=== PATIENT | female | born 1940 | race Caucasian/White ===

== ENCOUNTER 2018-05-30 07:01 | Day surgery (SDC) | payer MEDICARE, BC ==
[2018-05-30] MEDS ORDERED: Sodium Chloride 0.9% 1,000 ML IV SCH (07:30)
[2018-05-30] MEDS ORDERED: Propofol 200 MG/20 ML SDV ONE (08:18)
[2018-05-30] MEDS ORDERED: fentaNYL 100 MCG/2 ML SDV ONE (08:18)
--- NOTE | 2018-05-30 09:23 | PROC ---
DATE OF PROCEDURE: 05/30/2018 SURGEON: Ernie Aleman MD INDICATIONS: Keya is a 77-year-old female, who comes in because of recurrent abdominal pain. The pain is worse every time she eats. The risks and benefits were explained to her for esophageal gastroduodenoscopy. The Olympus 180 scope was used. PROCEDURE IN DETAIL: Anesthesia was given by nurse grinding supervisor during procedure, used 100 mcg of fentanyl and 90 mg of propofol. The tube was placed into the pharynx and the esophagus without difficulty and passed under direct vision into the body of the stomach. The pylorus was identified and advanced into the first and second part of the duodenum. Upon retraction of the tube, noted no lesions, ulceration. No abnormality. Mild erythema noted throughout the small intestine. The tube was brought back into the stomach, which revealed no abnormality. The greater and lesser curvatures were unremarkable. There is a hiatal hernia noted with mild erythema. The air was then withdrawn from the stomach. The remainder of the esophagus was unremarkable. The pharyngeal area was unremarkable. The tube was removed. The patient tolerated the procedure well. PREOPERATIVE DIAGNOSIS: Abdominal pain. POSTOPERATIVE DIAGNOSIS: I feel that this study does not identify the reason for the abdominal pain. There was a hiatal hernia, which could cause some of the problem, but not the severity that she describes. Ernie Aleman MD /[id number]
[2018-05-30 09:48] VITALS: BP 135/75
== END 2018-05-30 10:13 | disposition home or self-care (01) ==
LOC: JP.SDS 07:01
PROVIDERS: ATTEND Internal Medicine
DX: R10.9 Unspecified abdominal pain (principal); K44.9 Diaphragmatic hernia without obstruction or gangrene; K31.89 Other diseases of stomach and duodenum; K21.9 Gastro-esophageal reflux disease without esophagitis; I10 Essential (primary) hypertension; J44.9 Chronic obstructive pulmonary disease, unspecified; G47.33 Obstructive sleep apnea (adult) (pediatric)
CPT/HCPCS: 43235; J2704; J3010; J7030

== ENCOUNTER 2018-08-22 16:44 | Emergency (ER) | payer MEDICARE, BC ==
[2018-08-22] MEDS ORDERED: HYDROmorphone 0.5 MG/0.5 ML Syringe IVPUSH ONE ×2 (18:26→20:38)
[2018-08-22] MEDS ORDERED: Ondansetron 4 MG/2 ML SDV IVPUSH ONE ×2 (18:26→23:01)
[2018-08-22] MEDS ORDERED: Sodium Chloride 0.9% 1,000 ML IV SCH ×3 (18:30→23:00)
--- NOTE | 2018-08-22 18:30 | EDM.PDOC ---
ED HPI GENERAL MEDICAL PROBLEM - General Chief Complaint: Abdominal Pain Stated Complaint: ABDOMINAL PAIN Time Seen by Provider: 08/22/18 18:27 Source of Information: Reports: Patient History Limitations: Reports: No Limitations - History of Present Illness INITIAL COMMENTS - FREE TEXT/NARRATIVE: pt arrived with pain in the lower abdom,an. She has been vomiting all day. She has had diarrhea and she feels some of the stool looked red. pt has also felt constipated. She seemed very distended today. Onset: Gradual, Other ( The pain was clearly worse today. ) Duration: Hour(s): Location: Reports: Abdomen Associated Symptoms: Reports: Fever/Chills, Nausea/Vomiting Abdomen Pain Score (Numeric/FACES): 5 - Related Data Allergies Allergy/AdvReac Type Severity Reaction Status Date / Time No Known Allergies Allergy Verified 08/22/18 18:04 Home Meds: Home Meds Dexlansoprazole [Dexilant] 60 mg PO BEDTIME 10/08/14 [History] Gabapentin 600 mg PO BID 10/08/14 [History] Aclidinium [place] [Tudorza Pressair] 400 mcg PO DAILY 02/09/15 [History] Budesonide/Formoterol [Symbicort 160-4.5 Mcg Inhaler] 1 - 2 puff IH BID [History] Lutein 20 mg PO DAILY 02/09/15 [History] Solifenacin [Vesicare] 10 mg PO DAILY 02/09/15 [History] Acetaminophen/Caffeine [Excedrin Tension Headache] 1 tab PO DAILY PRN 05/30/18 [ History] Ca Carbonate/Vitamin D3/Vit K [Calcium + D Soft Chewable Tab] 2,000 mg PO BID [History] Ibuprofen/Pseudoephedrine HCl [Advil Cold & Sinus Caplet] 2 tab PO DAILY [History] Lactobacillus Acidophilus [Acidophilus] 0.5 mg PO DAILY 05/30/18 [History] MV-Mn/VitC/Asbna/Glu/Tia/HC124 [Airborne Gummies] 2 tab PO DAILY 05/30/18 [ History] Past Medical History HEENT History: Reports: Cataract, Impaired Vision, Sinusitis Other HEENT History: wears glasses Respiratory History: Reports: Asthma, Bronchitis, Recurrent Gastrointestinal History: Reports: Chronic Constipation, GERD, Hemorrhoids Genitourinary History: Reports: None [employer] 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: , Prolapsed Uterus Musculoskeletal History: Reports: Back Pain, Chronic, Osteoarthritis, Osteoporosis Neurological History: Reports: Migraines - Infectious Disease History Infectious Disease History: Reports: ERL-Iqwcwpeqwz-Xnwcexygh Enterobacteriaceae , Measles, Mumps, Rubella - Past Surgical History Head Surgeries/Procedures: Reports: None HEENT Surgical History: Reports: Cataract Surgery Respiratory Surgical History: Reports: None GI Surgical History: Reports: Appendectomy, Colonoscopy, Other (See Below) Other GI Surgeries/Procedures: hemorrhoidectomy Female Surgical History: Reports: Hysterectomy, Oophorectomy Neurological Surgical History: Reports: None Musculoskeletal Surgical History: Reports: Other (See Below) Other Musculoskeletal Surgeries/Procedures:: Clavicle fracture in 2014 requiring plating and screws Dermatological Surgical History: Reports: None Social & Family History - Tobacco Use Smoking Status *Q: Never Smoker Second Hand Smoke Exposure: No - Caffeine Use Caffeine Use: Reports: Coffee, Soda - Recreational Drug Use Recreational Drug Use: No ED ROS GENERAL - Review of Systems Review Of Systems: See Below Constitutional: Reports: Fever, Chills HEENT: Reports: No Symptoms Respiratory: Reports: No Symptoms Cardiovascular: Reports: Dyspnea on Exertion Endocrine: Reports: No Symptoms GI/Abdominal: Reports: Abdominal Pain, Decreased Appetite, Nausea, Vomiting Musculoskeletal: Reports: No Symptoms Skin: Reports: No Symptoms ED EXAM, GI/ABD - Physical Exam Exam: See Below Text/Narrative:: pt arrived felling distended in his abdoman and having pain in her lower abdoman. She does have a low grade temp of 100. She had some loose stools today but she in general has not been having regular bms. She has been vomiting all day today. She is feeling very weak. She feels persistently nauiseated. Exam Limited By: No Limitations General Appearance: Alert, Moderate Distress Ears: Normal TMs Nose: Normal Inspection Throat/Mouth: Normal Inspection Head: Atraumatic Neck: Normal Inspection Respiratory/Chest: No Respiratory Distress Cardiovascular: Regular Rate, Rhythm GI/Abdominal Exam: Other ( abdoman appears mildly distended. She has diffuse lower abdomanal tenderness. ) (Female) Exam: Deferred Rectal (Female) Exam: Other (pt had stool present in the rectum. her stool was occult neg. ) Back Exam: Normal Inspection Extremities: Normal Inspection Neurological: Alert, Oriented, Normal Cognition Psychiatric: Anxious Course - Vital Signs Last Recorded V/S: Last Vital Signs Temp 37.1 C 08/24/18 07:00 Pulse 77 08/24/18 07:00 Resp 18 08/24/18 07:00 BP 120/72 08/24/18 07:00 Pulse Ox 94 L 08/24/18 07:00 - Orders/Labs/Meds Orders: Medication Orders Acetaminophen (Tylenol) 650 mg PO Q4H PRN PRN Reason: Pain (Mild 1-3)/fever Acetaminophen/Caffeine (Excedrin Tension Headache) 1 tab PO DAILY PRN PRN Reason: migraine Last Admin: 08/23/18 14:09 Dose: 1 tab Albuterol (Proventil Neb Soln) 2.5 mg NEB Q4H PRN PRN Reason: Shortness Of Breath/wheezing Bisacodyl (Dulcolax) 5 mg PO DAILY PRN PRN Reason: Constipation Docusate Sodium (Colace) 100 mg PO BID PRN PRN Reason: Constipation Enoxaparin Sodium (Lovenox) 40 mg SUBCUT DAILY [facility] Last Admin: 08/23/18 11:37 Dose: 40 mg Ceftriaxone Sodium 1 gm/ (Sodium Chloride) 50 mls @ 100 mls/hr IV Q24H [facility] Last Admin: 08/23/18 13:59 Dose: 100 mls/hr Lactobacillus Rhamnosus (Culturelle) 1 cap PO DAILY [facility] Melatonin (Melatonin) 6 mg PO BEDTIME PRN PRN Reason: Insomnia Last Admin: 08/23/18 21:27 Dose: 6 mg Morphine Sulfate (Morphine) 2 mg IVPUSH Q2H PRN PRN Reason: Pain (severe 7-10) Last Admin: 08/23/18 23:51 Dose: 2 mg Aclidinium [place] ( Tudorza Pressair) 400 Mcg Inhaler Own Med 0 each INH DAILY [facility] Last Admin: 08/23/18 21:30 Dose: Lutein 20 Mg Tab (Own Med) 0 mg PO DAILY [facility] Last Admin: 08/23/18 21:25 Dose: Ondansetron HCl (Zofran Odt) 4 mg PO Q6H PRN PRN Reason: Nausea able to take PO Ondansetron HCl (Zofran) 4 mg IV Q4H PRN PRN Reason: Nausea/Vomiting Last Admin: 08/23/18 09:37 Dose: 4 mg Admin: 08/23/18 05:58 Dose: 4 mg Admin: 08/23/18 01:50 Dose: 4 mg Pantoprazole Sodium (Protonix) 40 mg PO BEDTIME [facility] Last Admin: 08/23/18 20:51 Dose: 40 mg Patient's Own MedicationVesicare 10 Mg 1 each PO DAILY [facility] Last Admin: 08/23/18 21:27 Dose: 1 each Patient's Own Medication Gabapentin 600 Mg 1 each PO BID [facility] Last Admin: 08/23/18 21:26 Dose: Not Given Patient's Own Medication Symbicort 160/4.5 Mcg 0 each INH BID [facility] Last Admin: 08/23/18 21:30 Dose: 1 each Polyethylene Glycol (Miralax) 17 gm PO BID [facility] Last Admin: 08/23/18 21:30 Dose: Not Given Admin: 08/23/18 13:59 Dose: 17 gm Senna/Docusate Sodium (Senna Plus) 1 tab PO BID [facility] Last Admin: 08/23/18 20:51 Dose: 1 tab Admin: 08/23/18 13:59 Dose: 1 tab Sodium Biphosphate/Sodium Phosphate (Fleet Enema) 133 ml RECTAL ONETIME PRN PRN Reason: Constipation Labs: Laboratory Tests 08/22/18 08/22/18 08/22/18 Range/Units 18:32 18:38 18:38 WBC 10.7 (4.5-11.0) K/uL RBC 5.14 (3.30-5.50) M/uL Hgb 15.2 H (12.0-15.0) g/dL Hct 45.9 (36.0-48.0) % MCV 89 (80-98) fL MCH 30 (27-31) pg MCHC 33 (32-36) % Plt Count 302 (150-400) K/uL Neut % (Auto) 92 H (36-66) % Lymph % (Auto) 5 L (24-44) % [place] % (Auto) 3 (2-6) % Eos % (Auto) 0 L (2-4) % Baso % (Auto) 0 (0-1) % Sodium (140-148) mmol/L Potassium (3.6-5.2) mmol/L Chloride (100-108) mmol/L Carbon Dioxide (21-32) mmol/L Anion Gap (5.0-14.0) mmol/L BUN (7-18) mg/dL Creatinine (0.6-1.0) mg/dL Est Cr Clr Drug Dosing mL/min Estimated GFR (MDRD) (>60) Glucose (74-106) mg/dL Lactic Acid (0.4-2.0) mmol/L Calcium (8.5-10.1) mg/dL Total Bilirubin (0.2-1.0) mg/dL AST (15-37) U/L ALT (12-78) U/L Alkaline Phosphatase (46-116) U/L C-Reactive Protein 1.18 H (0.0-0.3) mg/dL Total Protein (6.4-8.2) g/dL Albumin (3.4-5.0) g/dL Globulin (2.3-3.5) g/dL Albumin/Globulin Ratio (1.2-2.2) Urine Color Yellow Urine Appearance Cloudy Urine pH 6.0 (4.5-8.0) Ur Specific [place] 1.015 (1.008-1.030) Urine Protein Negative (NEGATIVE) mg/dL Urine Glucose (UA) Normal (NEGATIVE) mg/dL Urine Ketones 50 H (NEGATIVE) mg/dL Urine Occult Blood Trace (NEGATIVE) Urine Nitrite Positive H (NEGATIVE) Urine Bilirubin Negative (NEGATIVE) Urine Urobilinogen Normal (NORMAL) mg/dL Ur Leukocyte Esterase Small (NEGATIVE) Urine RBC 0-5 (0-5) Urine WBC 0-5 (0-5) Ur Epithelial Cells Few Amorphous Sediment Not seen Urine Bacteria Many Urine Mucus Not seen 08/22/18 08/22/18 Range/Units 18:38 23:00 WBC (4.5-11.0) K/uL RBC (3.30-5.50) M/uL Hgb (12.0-15.0) g/dL Hct (36.0-48.0) % MCV (80-98) fL MCH (27-31) pg MCHC (32-36) % Plt Count (150-400) K/uL Neut % (Auto) (36-66) % Lymph % (Auto) (24-44) % [place] % (Auto) (2-6) % Eos % (Auto) (2-4) % Baso % (Auto) (0-1) % Sodium 141 (140-148) mmol/L Potassium 3.5 L (3.6-5.2) mmol/L Chloride 105 (100-108) mmol/L Carbon Dioxide 28 (21-32) mmol/L Anion Gap 11.5 (5.0-14.0) mmol/L BUN 15 (7-18) mg/dL Creatinine 0.8 (0.6-1.0) mg/dL Est Cr Clr Drug Dosing 28.72 mL/min Estimated GFR (MDRD) > 60 (>60) Glucose 111 H (74-106) mg/dL Lactic Acid 1.7 (0.4-2.0) mmol/L Calcium 9.0 (8.5-10.1) mg/dL Total Bilirubin 0.7 (0.2-1.0) mg/dL AST 13 L (15-37) U/L ALT 22 (12-78) U/L Alkaline Phosphatase 81 (46-116) U/L C-Reactive Protein (0.0-0.3) mg/dL Total Protein 7.0 (6.4-8.2) g/dL Albumin 3.7 (3.4-5.0) g/dL Globulin 3.3 (2.3-3.5) g/dL Albumin/Globulin Ratio 1.1 L (1.2-2.2) Urine Color Urine Appearance Urine pH (4.5-8.0) Ur Specific [place] (1.008-1.030) Urine Protein (NEGATIVE) mg/dL Urine Glucose (UA) (NEGATIVE) mg/dL Urine Ketones (NEGATIVE) mg/dL Urine Occult Blood (NEGATIVE) Urine Nitrite (NEGATIVE) Urine Bilirubin (NEGATIVE) Urine Urobilinogen (NORMAL) mg/dL Ur Leukocyte Esterase (NEGATIVE) Urine RBC (0-5) Urine WBC (0-5) Ur Epithelial Cells Amorphous Sediment Urine Bacteria Urine Mucus Meds: Medications Generic Name Dose Route Start Last Admin Trade Name Freq PRN Reason Stop Dose Admin Acetaminophen 650 mg 08/23/18 01:16 Tylenol PO Q4H PRN Pain (Mild 1-3)/fever Acetaminophen/Caffeine 1 tab 08/23/18 01:16 08/23/18 14:09 Excedrin Tension Headache PO 1 tab DAILY PRN Administration migraine Albuterol 2.5 mg 08/23/18 01:16 Proventil Neb Soln NEB Q4H PRN Shortness Of Breath/wheezing Bisacodyl 5 mg 08/23/18 01:16 Dulcolax PO DAILY PRN Constipation Docusate Sodium 100 mg 08/23/18 01:16 Colace PO BID PRN Constipation Enoxaparin Sodium 40 mg 08/23/18 09:30 08/23/18 11:37 Lovenox SUBCUT 40 mg DAILY [facility] Administration Ceftriaxone Sodium 1 gm/ 50 mls @ 100 mls/hr 08/23/18 13:00 08/23/18 13:59 Sodium Chloride IV 100 mls/hr Q24H [facility] Administration Lactobacillus Rhamnosus 1 cap 08/24/18 09:00 Culturelle PO DAILY [facility] Melatonin 6 mg 08/23/18 01:16 08/23/18 21:27 Melatonin PO 6 mg BEDTIME PRN Administration Insomnia Morphine Sulfate 2 mg 08/23/18 01:16 08/23/18 23:51 Morphine IVPUSH 2 mg Q2H PRN Administration Pain (severe 7-10) Aclidinium [place] ( 0 each 08/23/18 19:45 08/23/18 21:30 Tudorza Pressair) INH Not Given 400 Mcg Inhaler DAILY [facility] Own Med Lutein 20 Mg Tab 0 mg 08/23/18 17:45 08/23/18 21:25 Own Med PO Not Given DAILY [facility] Ondansetron HCl 4 mg 08/23/18 01:16 Zofran Odt PO Q6H PRN Nausea able to take PO Ondansetron HCl 4 mg 08/23/18 01:16 08/23/18 09:37 Zofran IV 4 mg Q4H PRN Administration Nausea/Vomiting Pantoprazole Sodium 40 mg 08/23/18 21:00 08/23/18 20:51 Protonix PO 40 mg BEDTIME [facility] Administration Patient's Own 1 each 08/24/18 09:00 08/23/18 21:27 MedicationVesicare PO 1 each 10 Mg DAILY [facility] Administration Patient's Own 1 each 08/23/18 21:15 08/23/18 21:26 Medication PO Not Given Gabapentin 600 Mg BID [facility] Patient's Own 0 each 08/23/18 21:15 08/23/18 21:30 Medication INH 1 each Symbicort 160/4.5 BID [facility] Administration Mcg Polyethylene Glycol 17 gm 08/23/18 13:00 08/23/18 21:30 Miralax PO Not Given BID [facility] Senna/Docusate Sodium 1 tab 08/23/18 13:00 08/23/18 20:51 Senna Plus PO 1 tab BID [facility] Administration Sodium Biphosphate/Sodium Phosphate 133 ml 08/23/18 12:58 Fleet Enema RECTAL ONETIME PRN Constipation Discontinued Medications Generic Name Dose Route Start Last Admin Trade Name Freq PRN Reason Stop Dose Admin Bisacodyl 10 mg 08/23/18 13:15 08/23/18 14:48 Dulcolax RECTAL 08/23/18 13:16 Not Given ONETIME ONE Diphenhydramine HCl 25 mg 08/23/18 01:16 08/23/18 02:23 Benadryl PO 08/23/18 01:17 Not Given ONETIME ONE Enoxaparin Sodium 30 mg 08/23/18 09:00 Lovenox SUBCUT DAILY [facility] Gabapentin 600 mg 08/23/18 09:00 08/23/18 20:51 Neurontin PO 600 mg BID [facility] Administration Hydromorphone HCl 0.5 mg 08/22/18 18:26 08/22/18 19:01 Dilaudid IVPUSH 08/22/18 18:27 0.5 mg ONETIME ONE Administration Hydromorphone HCl 0.5 mg 08/22/18 20:38 08/22/18 20:45 Dilaudid IVPUSH 08/22/18 20:39 0.5 mg ONETIME ONE Administration Sodium Chloride 1,000 mls @ 999 mls/hr 08/22/18 18:30 08/22/18 18:59 Normal Saline IV 999 mls/hr ASDIRECTED [facility] Administration Sodium Chloride 1,000 mls @ 999 mls/hr 08/22/18 19:00 08/22/18 20:34 Normal Saline IV 999 mls/hr ASDIRECTED [facility] Administration Sodium Chloride 80 mls @ 3 mls/sec 08/22/18 20:15 08/22/18 20:22 Normal Saline IV 3 mls/sec ASDIRECTED [facility] Administration Levofloxacin/Dextrose 500 mg/ 100 mls @ 100 mls/hr 08/22/18 21:30 08/22/18 21 :47 Premix IV 08/22/18 22:29 100 mls/hr ONETIME ONE Administration Sodium Chloride 1,000 mls @ 999 mls/hr 08/22/18 23:00 08/22/18 23:24 Normal Saline IV 999 mls/hr ASDIRECTED [facility] Administration Levofloxacin/Dextrose 500 mg/ 100 mls @ 100 mls/hr 08/23/18 21:00 Premix IV Q24H [facility] Sodium Chloride 1,000 mls @ 125 mls/hr 08/23/18 01:16 08/23/18 09:33 Normal Saline IV 125 mls/hr ASDIRECTED [facility] Administration Iopamidol 100 ml 08/22/18 20:15 08/22/18 20:22 Isovue-300 (61%) IV 100 ml . DIRECTED [facility] Administration Lorazepam 1 mg 08/23/18 01:16 08/23/18 03:19 Ativan IV 1 mg Q6H PRN Administration Nausea/Vomiting Magnesium Citrate 296 ml 08/22/18 21:31 08/22/18 21:50 Citrate Of Magnesia PO 08/22/18 21:32 296 ml ONETIME ONE Administration Budesonide/ 0 each 08/23/18 21:00 08/23/18 21:35 Formoterol ( INH Not Given Symbicort) 160/4.5 BID [facility] Mcg Inhaler Own Med Solifenacin ( 0 each 08/23/18 19:45 08/23/18 21:34 Vesicare) 10 Mg PO Not Given Tablet Own Med DAILY [facility] Ondansetron HCl 4 mg 08/22/18 18:26 08/22/18 19:01 Zofran IVPUSH 08/22/18 18:27 4 mg ONETIME ONE Administration Ondansetron HCl 4 mg 08/22/18 23:01 08/22/18 23:25 Zofran IVPUSH 08/22/18 23:02 4 mg ONETIME ONE Administration Oxycodone HCl 5 mg 08/23/18 01:16 08/23/18 01:44 Oxycodone PO 5 mg Q4H PRN Administration Pain (moderate 4-6) Sodium Chloride 10 ml 08/22/18 20:01 08/22/18 20:22 Saline Flush FLUSH 10 ml ASDIRECTED PRN Administration Keep Vein Open - Re-Assessments/Exams Free Text/Narrative Re-Assessment/Exam: 08/22/18 23:36 pt had a neg stool for blood. She had a cat scan of the abdoman which showed a hiatal hernia and constipation. Her urine was clearing infected and may be the source of the temp. wbc was normal and her lactic acid was normal. pt was given mag citrate and a tap water enema. She did have good results with the tap water enema. 08/22/18 23:37 08/24/18 08:10 Departure - Departure Time of Disposition: 21:30 Disposition: Admitted As Inpatient 68 Condition: Fair Clinical Impression: Dehydration UTI (urinary tract infection) Qualifiers: Urinary tract infection type: acute cystitis Hematuria presence: with hematuria Qualified Code(s): N30.01 - Acute cystitis with hematuria Constipation Qualifiers: Constipation type: chronic idiopathic constipation Qualified Code(s): K59.04 - Chronic idiopathic constipation - Discharge Information
[2018-08-22] MEDS ORDERED: Sodium Chloride 0.9% 10 ML Syringe FLUSH PRN (20:01)
[2018-08-22] MEDS ORDERED: Iopamidol 612 MG/ML 100 ML Bottle IV SCH (20:15)
[2018-08-22] MEDS ORDERED: Sodium Chloride 0.9% 80 ML IV SCH (20:15)
--- NOTE | 2018-08-22 21:05 | CRLCT ---
Clinical INDICATION: Lower abdominal pain. TECHNIQUE: Axial intravenously infused CT cuts were performed from above diaphragm to the below the ischial tuberosities. 100 mL of Isovue-300 was injected intravenously. COMPARISON: 06/04/2018. Findings : There is a very large amount of stool throughout some of majority of the colon. The sigmoid colon is relatively decompressed. No obstructing mass is seen. The small bowel appears normal. The appendix is not identified with certainty. There are no right lower quadrant inflammatory changes. There is no free intraperitoneal air. There are there is a moderate hiatal hernia. The liver, spleen, pancreas are, adrenals and kidneys appear normal. There are no enlarged retroperitoneal, mesenteric, iliac or inguinal lymph nodes. There has been a hysterectomy. IMPRESSION: 1. There is a very large amount stool throughout the majority of the colon. The sigmoid colon is relatively decompressed. There is no obstructing mass seen. 2. Moderate size hiatal hernia. Please note that all CT scans at this facility use dose modulation, iterative reconstruction, and/or weight-based dosing when appropriate to reduce radiation dose to as low as reasonably achievable. Dictated by Juan J Bhatia MD @ Aug 22 2018 8:55PM Signed by Dr. Juan J Bhatia @ Aug 22 2018 9:03PM
[2018-08-22] MEDS ORDERED: Levofloxacin/Dextrose 5%-Water 500 MG in Premix Bag 1 BAG IV ONE (21:30)
[2018-08-22] MEDS ORDERED: Magnesium Citrate Solution 296 ML Bottle PO ONE (21:31)
[2018-08-23] MEDS ORDERED: Ondansetron 4 MG Tab.DIS PO PRN (01:16)
[2018-08-23] MEDS ORDERED: Melatonin 3 MG Tab PO PRN (01:16)
[2018-08-23] MEDS ORDERED: LORazepam 2 MG/ML SDV IV PRN (01:16)
[2018-08-23] MEDS ORDERED: Docusate Sodium 100 MG Cap PO PRN (01:16)
[2018-08-23] MEDS ORDERED: Sodium Chloride 0.9% 1,000 ML IV SCH (01:16)
[2018-08-23] MEDS ORDERED: diphenhydrAMINE 25 MG Cap PO ONE (01:16)
[2018-08-23] MEDS ORDERED: Albuterol 0.083% 2.5 MG/3 ML Neb Soln NEB PRN (01:16)
[2018-08-23] MEDS ORDERED: Acetaminophen 325 MG Tab PO PRN (01:16)
[2018-08-23] MEDS ORDERED: oxyCODONE 5 MG Tab PO PRN (01:16)
[2018-08-23] MEDS ORDERED: Bisacodyl 5 MG Tab PO PRN (01:16)
[2018-08-23] MEDS ORDERED: Morphine 2 MG/ML Syringe IVPUSH PRN (01:16)
[2018-08-23] MEDS: Ondansetron 4 MG/2 ML SDV IV PRN ×3 (01:50→09:37)
--- NOTE | 2018-08-23 07:43 | PCM.HP ---
H&P History of Present Illness - General Date of Service: 08/22/18 Admit Problem/Dx: Admission Diagnosis/Problem Admission Diagnosis/Problem UTI, Urinary tract infectious disease Source of Information: Patient History Limitations: Reports: No Limitations - History of Present Illness Initial Comments - Free Text/Narative: This is a 77 year old female admitted Observation status for urinary tract infection. She came to ER with her daughter, reports abdominal pain. felt her urine felt "warm" when she urinated. Reports had not eaten or drank much in the past 2 days. In ER had a CT abdomen-pelvis which showed moderate constipation. and urine sample shows acute UTI. CBC WBC normal. She had a enema and medication for constipation, had a large stool but felt she was too weak to go home. Onset of Symptoms: Reports: Gradual Duration of Symptoms: Reports: Day(s):, Getting Worse Location: Reports: Generalized Severity: Severe Improves with: Reports: None Worsens with: Reports: Movement Associated Symptoms: Reports: Fever/Chills, Headaches, Loss of Appetite, Nausea/ Vomiting, Weakness Abdomen Pain Score (Numeric/FACES): 5 - Related Data Allergies/Adverse Reactions: Allergies Allergy/AdvReac Type Severity Reaction Status Date / Time No Known Allergies Allergy Verified 08/22/18 18:04 Home Medications: Home Meds Dexlansoprazole [Dexilant] 60 mg PO BEDTIME 10/08/14 [History] Gabapentin 600 mg PO BID 10/08/14 [History] Aclidinium [place] [Tudorza Pressair] 400 mcg PO DAILY 02/09/15 [History] Budesonide/Formoterol [Symbicort 160-4.5 Mcg Inhaler] 1 - 2 puff IH BID [History] Lutein 20 mg PO DAILY 02/09/15 [History] Solifenacin [Vesicare] 10 mg PO DAILY 02/09/15 [History] Acetaminophen/Caffeine [Excedrin Tension Headache] 1 tab PO DAILY PRN 05/30/18 [ History] Ca Carbonate/Vitamin D3/Vit K [Calcium + D Soft Chewable Tab] 2,000 mg PO BID [History] Ibuprofen/Pseudoephedrine HCl [Advil Cold & Sinus Caplet] 2 tab PO DAILY [History] Lactobacillus Acidophilus [Acidophilus] 0.5 mg PO DAILY 05/30/18 [History] MV-Mn/VitC/Asbna/Glu/Tia/HC124 [Airborne Gummies] 2 tab PO DAILY 05/30/18 [ History] Past Medical History HEENT History: Reports: Cataract, Impaired Vision, Sinusitis Other HEENT History: wears glasses Respiratory History: Reports: Asthma, Bronchitis, Recurrent Gastrointestinal History: Reports: Chronic Constipation, GERD, Hemorrhoids Genitourinary History: Reports: None 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: , Prolapsed Uterus Musculoskeletal History: Reports: Back Pain, Chronic, Osteoarthritis, Osteoporosis Neurological History: Reports: Migraines - Infectious Disease History Infectious Disease History: Reports: [id number] Enterobacteriaceae , Measles, Mumps, Rubella - Past Surgical History Head Surgeries/Procedures: Reports: None HEENT Surgical History: Reports: Cataract Surgery Respiratory Surgical History: Reports: None GI Surgical History: Reports: Appendectomy, Colonoscopy, Other (See Below) Other GI Surgeries/Procedures: hemorrhoidectomy Female Surgical History: Reports: Hysterectomy, Oophorectomy Neurological Surgical History: Reports: None Musculoskeletal Surgical History: Reports: Other (See Below) Other Musculoskeletal Surgeries/Procedures:: Clavicle fracture in 2013 requiring plating and screws Dermatological Surgical History: Reports: None Social & Family History - Tobacco Use Smoking Status *Q: Never Smoker Second Hand Smoke Exposure: Yes - Caffeine Use Caffeine Use: Reports: Coffee, Soda - Alcohol Use Days Per Week of Alcohol Use: 1 Number of Drinks Per Day: 2 Total Drinks Per Week: 2 - Recreational Drug Use Recreational Drug Use: No - Living Situation & Occupation Living situation: Reports: with Family Occupation: Retired (lives in [place], [place]. with deyvi who is a dialysis patient. Help each other out has 5 children.) H&P Review of Systems - Review of Systems: Review Of Systems: See Below General: Reports: Fever, Chills, Malaise, Weakness, Fatigue, Decreased Appetite HEENT: Reports: No Symptoms Pulmonary: Reports: No Symptoms Cardiovascular: Reports: No Symptoms Gastrointestinal: Reports: Abdominal Pain, Constipation Genitourinary: Reports: Burning Musculoskeletal: Reports: Other (muscle and bones feel weak) Skin: Reports: No Symptoms Psychiatric: Reports: No Symptoms Neurological: Reports: Weakness Hematologic/Lymphatic: Reports: No Symptoms Exam - Exam Exam: See Below - Vital Signs Vital Signs: Last Vital Signs Temp 36.6 C 08/23/18 07:00 Pulse 90 08/23/18 07:00 Resp 16 08/23/18 07:00 BP 130/78 08/23/18 07:00 Pulse Ox 97 08/23/18 07:00 Weight: 69.581 kg - Exam General: Alert, Oriented, Cooperative, Other (fatigue, appears pale and tired) HEENT: PERRLA, Conjunctiva Clear, EACs Clear, EOMI, Other (mouth dry) Neck: Supple, Trachea Midline, 2 Lungs: Clear to Auscultation, Normal Respiratory Effort Cardiovascular: Regular Rate, Regular Rhythm GI/Abdominal Exam: Normal Bowel Sounds, Soft, Non-Tender, No Organomegaly, No Distention, No Abnormal Bruit, No Mass, Pelvis Stable (Female) Exam: Deferred Rectal (Female) Exam: Deferred Back Exam: Normal Inspection, Full Range of Motion, NT Extremities: Normal Inspection, Normal Range of Motion, Non-Tender, No Pedal Edema, Normal Capillary Refill Peripheral Pulses: 2+: Radial (L), Radial (R), Dorsalis Pedis (L), Dorsalis Pedis (R) Skin: Warm, Dry, Intact Neurological: Cranial Nerves Intact, Reflexes Equal Bilateral Neuro Extensive - Mental Status: Alert, Oriented x3, Normal Mood/Affect, Normal Cognition Neuro Extensive - Motor, Sensory, Reflexes: CN II-XII Intact, Normal Gait, Normal Reflexes Psychiatric: Alert, Normal Affect, Normal Mood - Patient Data Lab Results Last 24 hrs: Laboratory Results - last 24 hr 08/22/18 08/22/18 08/22/18 Range/Units 18:32 18:38 18:38 WBC 10.7 (4.5-11.0) K/uL RBC 5.14 (3.30-5.50) M/uL Hgb 15.2 H (12.0-15.0) g/dL Hct 45.9 (36.0-48.0) % MCV 89 (80-98) fL MCH 30 (27-31) pg MCHC 33 (32-36) % Plt Count 302 (150-400) K/uL Neut % (Auto) 92 H (36-66) % Lymph % (Auto) 5 L (24-44) % [place] % (Auto) 3 (2-6) % Eos % (Auto) 0 L (2-4) % Baso % (Auto) 0 (0-1) % Sodium (140-148) mmol/L Potassium (3.6-5.2) mmol/L Chloride (100-108) mmol/L Carbon Dioxide (21-32) mmol/L Anion Gap (5.0-14.0) mmol/L BUN (7-18) mg/dL Creatinine (0.6-1.0) mg/dL Est Cr Clr Drug Dosing mL/min Estimated GFR (MDRD) (>60) Glucose (74-106) mg/dL Lactic Acid (0.4-2.0) mmol/L Calcium (8.5-10.1) mg/dL Total Bilirubin (0.2-1.0) mg/dL AST (15-37) U/L ALT (12-78) U/L Alkaline Phosphatase (46-116) U/L C-Reactive Protein 1.18 H (0.0-0.3) mg/dL Total Protein (6.4-8.2) g/dL Albumin (3.4-5.0) g/dL Globulin (2.3-3.5) g/dL Albumin/Globulin Ratio (1.2-2.2) Urine Color Yellow Urine Appearance Cloudy Urine pH 6.0 (4.5-8.0) Ur Specific [place] 1.015 (1.008-1.030) Urine Protein Negative (NEGATIVE) mg/dL Urine Glucose (UA) Normal (NEGATIVE) mg/dL Urine Ketones 50 H (NEGATIVE) mg/dL Urine Occult Blood Trace (NEGATIVE) Urine Nitrite Positive H (NEGATIVE) Urine Bilirubin Negative (NEGATIVE) Urine Urobilinogen Normal (NORMAL) mg/dL Ur Leukocyte Esterase Small (NEGATIVE) Urine RBC 0-5 (0-5) Urine WBC 0-5 (0-5) Ur Epithelial Cells Few Amorphous Sediment Not seen Urine Bacteria Many Urine Mucus Not seen 08/22/18 08/22/18 08/23/18 Range/Units 18:38 23:00 06:05 WBC 6.1 (4.5-11.0) K/uL RBC 4.30 (3.30-5.50) M/uL Hgb 12.4 D (12.0-15.0) g/dL Hct 38.9 (36.0-48.0) % MCV 91 (80-98) fL MCH 29 (27-31) pg MCHC 32 (32-36) % Plt Count 246 (150-400) K/uL Neut % (Auto) 88 H (36-66) % Lymph % (Auto) 7 L (24-44) % [place] % (Auto) 5 (2-6) % Eos % (Auto) 0 L (2-4) % Baso % (Auto) 0 (0-1) % Sodium 141 (140-148) mmol/L Potassium 3.5 L (3.6-5.2) mmol/L Chloride 105 (100-108) mmol/L Carbon Dioxide 28 (21-32) mmol/L Anion Gap 11.5 (5.0-14.0) mmol/L BUN 15 (7-18) mg/dL Creatinine 0.8 (0.6-1.0) mg/dL Est Cr Clr Drug Dosing 28.72 mL/min Estimated GFR (MDRD) > 60 (>60) Glucose 111 H (74-106) mg/dL Lactic Acid 1.7 (0.4-2.0) mmol/L Calcium 9.0 (8.5-10.1) mg/dL Total Bilirubin 0.7 (0.2-1.0) mg/dL AST 13 L (15-37) U/L ALT 22 (12-78) U/L Alkaline Phosphatase 81 (46-116) U/L C-Reactive Protein (0.0-0.3) mg/dL Total Protein 7.0 (6.4-8.2) g/dL Albumin 3.7 (3.4-5.0) g/dL Globulin 3.3 (2.3-3.5) g/dL Albumin/Globulin Ratio 1.1 L (1.2-2.2) Urine Color Urine Appearance Urine pH (4.5-8.0) Ur Specific [place] (1.008-1.030) Urine Protein (NEGATIVE) mg/dL Urine Glucose (UA) (NEGATIVE) mg/dL Urine Ketones (NEGATIVE) mg/dL Urine Occult Blood (NEGATIVE) Urine Nitrite (NEGATIVE) Urine Bilirubin (NEGATIVE) Urine Urobilinogen (NORMAL) mg/dL Ur Leukocyte Esterase (NEGATIVE) Urine RBC (0-5) Urine WBC (0-5) Ur Epithelial Cells Amorphous Sediment Urine Bacteria Urine Mucus 08/23/18 Range/Units 06:05 WBC (4.5-11.0) K/uL RBC (3.30-5.50) M/uL Hgb (12.0-15.0) g/dL Hct (36.0-48.0) % MCV (80-98) fL MCH (27-31) pg MCHC (32-36) % Plt Count (150-400) K/uL Neut % (Auto) (36-66) % Lymph % (Auto) (24-44) % [place]pine % (Auto) (2-6) % Eos % (Auto) (2-4) % Baso % (Auto) (0-1) % Sodium 140 (140-148) mmol/L Potassium 3.7 (3.6-5.2) mmol/L Chloride 108 (100-108) mmol/L Carbon Dioxide 25 (21-32) mmol/L Anion Gap 6.9 (5.0-14.0) mmol/L BUN 8 (7-18) mg/dL Creatinine 0.6 (0.6-1.0) mg/dL Est Cr Clr Drug Dosing 78.78 mL/min Estimated GFR (MDRD) > 60 (>60) Glucose 110 H (74-106) mg/dL Lactic Acid (0.4-2.0) mmol/L Calcium 7.8 L (8.5-10.1) mg/dL Total Bilirubin (0.2-1.0) mg/dL AST (15-37) U/L ALT (12-78) U/L Alkaline Phosphatase (46-116) U/L C-Reactive Protein (0.0-0.3) mg/dL Total Protein (6.4-8.2) g/dL Albumin (3.4-5.0) g/dL Globulin (2.3-3.5) g/dL Albumin/Globulin Ratio (1.2-2.2) Urine Color Urine Appearance Urine pH (4.5-8.0) Ur Specific [place] (1.008-1.030) Urine Protein (NEGATIVE) mg/dL Urine Glucose (UA) (NEGATIVE) mg/dL Urine Ketones (NEGATIVE) mg/dL Urine Occult Blood (NEGATIVE) Urine Nitrite (NEGATIVE) Urine Bilirubin (NEGATIVE) Urine Urobilinogen (NORMAL) mg/dL Ur Leukocyte Esterase (NEGATIVE) Urine RBC (0-5) Urine WBC (0-5) Ur Epithelial Cells Amorphous Sediment Urine Bacteria Urine Mucus Result Diagrams: 08/23/18 06:05 08/23/18 06:05 Cristofer Results Last 24 hrs: Microbiology 08/22/18 18:50 Urine Culture - Preliminary Urine, Bladder 08/22/18 23:00 Clostridioides difficile (PCR) - Final Stool / Feces NEGATIVE CDIFF TOXIN 08/22/18 18:32 Stool Occult Blood (CRISTOFER) - Final Stool / Feces NEGATIVE OCCULT BLOOD REFERENCE RANGE: NEGATIVE - Problem List (1) UTI (urinary tract infection) SNOMED Code(s): 63977928 ICD Code: N39.0 - URINARY TRACT INFECTION, SITE NOT SPECIFIED Status: Acute Priority: High Current Visit: Yes Qualifiers: Urinary tract infection type: acute cystitis Hematuria presence: with hematuria Qualified Code(s): N30.01 - Acute cystitis with hematuria (2) Dehydration SNOMED Code(s): 05064880 ICD Code: E86.0 - DEHYDRATION Status: Acute Priority: High Current Visit: Yes (3) Constipation SNOMED Code(s): 20257484 ICD Code: K59.00 - CONSTIPATION, UNSPECIFIED Status: Acute Priority: Low Current Visit: Yes Qualifiers: Constipation type: chronic idiopathic constipation Qualified Code(s): K59.04 - Chronic idiopathic constipation Problem List Initiated/Reviewed/Updated: Yes Orders Last 24hrs: Active Orders 24 hr Category Date Time Status Intake and Output [RC] QSHIFT Care 08/23/18 01:16 Active Notify Provider Vital Signs [RC] ASDIRECTED Care 08/23/18 01:16 Active Oxygen Therapy [RC] PRN Care 08/23/18 01:16 Active Pulse Oximetry [RC] PRN Care 08/23/18 01:16 Active RT Aerosol Therapy [RC] ASDIRECTED Care 08/23/18 01:16 Active Up With Assistance [RC] ASDIRECTED Care 08/23/18 01:16 Active VTE/DVT Education [RC] Per Unit Routine Care 08/23/18 01:16 Active Vital Signs [RC] Q4H Care 08/23/18 01:16 Active Regular Diet [DIET] Diet 08/23/18 Breakfast Active CULTURE URINE [RM] Stat Lab 08/22/18 18:50 Results Acetaminophen [Tylenol] Med 08/23/18 01:16 Active 650 mg PO Q4H PRN Acetaminophen/Caffeine [Excedrin Tension Headache] Med 08/23/18 01:16 Active 1 tab PO DAILY PRN Albuterol [Proventil Neb Soln] Med 08/23/18 01:16 Active 2.5 mg NEB Q4H PRN Bisacodyl [Dulcolax] Med 08/23/18 01:16 Active 5 mg PO DAILY PRN Docusate Sodium [Colace] Med 08/23/18 01:16 Active 100 mg PO BID PRN Enoxaparin [Lovenox] Med 08/23/18 09:00 Active 30 mg SUBCUT DAILY Gabapentin [Neurontin] Med 08/23/18 09:00 Active 600 mg PO BID LORazepam [Ativan] Med 08/23/18 01:16 Active 1 mg IV Q6H PRN Levofloxacin/Dextrose 5%-Water [Levaquin in D5W 250 MG/ Med 08/23/18 21:30 Active 50 ML] 250 mg Premix Bag 1 bag IV Q24H Melatonin Med 08/23/18 01:16 Active 6 mg PO BEDTIME PRN Morphine Med 08/23/18 01:16 Active 2 mg IVPUSH Q2H PRN Ondansetron [Zofran ODT] Med 08/23/18 01:16 Active 4 mg PO Q6H PRN Ondansetron [Zofran] Med 08/23/18 01:16 Active 4 mg IV Q4H PRN Pantoprazole [ProTONIX IV] Med 08/23/18 09:00 Active 40 mg IVPUSH DAILY Pantoprazole [ProTONIX] Med 08/23/18 21:00 Active 40 mg PO BEDTIME Sodium Chloride 0.9% [Normal Saline] 1,000 ml Med 08/23/18 01:16 Active IV ASDIRECTED oxyCODONE Med 08/23/18 01:16 Active 5 mg PO Q4H PRN Resuscitation Status Routine Resus Stat 08/23/18 00:16 Ordered Medication Orders Acetaminophen (Tylenol) 650 mg PO Q4H PRN PRN Reason: Pain (Mild 1-3)/fever Acetaminophen/Caffeine (Excedrin Tension Headache) 1 tab PO DAILY PRN PRN Reason: migraine Albuterol (Proventil Neb Soln) 2.5 mg NEB Q4H PRN PRN Reason: Shortness Of Breath/wheezing Bisacodyl (Dulcolax) 5 mg PO DAILY PRN PRN Reason: Constipation Docusate Sodium (Colace) 100 mg PO BID PRN PRN Reason: Constipation Enoxaparin Sodium (Lovenox) 30 mg SUBCUT DAILY [facility] [place] Gabapentin (Neurontin) 600 mg PO BID [facility] [place] Levofloxacin/Dextrose 250 mg/ (Premix) 50 mls @ 50 mls/hr IV Q24H [facility] [place] Sodium Chloride (Normal Saline) 1,000 mls @ 125 mls/hr IV ASDIRECTED [facility] [place] Lorazepam (Ativan) 1 mg IV Q6H PRN PRN Reason: Nausea/Vomiting Last Admin: 08/23/18 03:19 Dose: 1 mg Melatonin (Melatonin) 6 mg PO BEDTIME PRN PRN Reason: Insomnia Morphine Sulfate (Morphine) 2 mg IVPUSH Q2H PRN PRN Reason: Pain (severe 7-10) Ondansetron HCl (Zofran Odt) 4 mg PO Q6H PRN PRN Reason: Nausea able to take PO Ondansetron HCl (Zofran) 4 mg IV Q4H PRN PRN Reason: Nausea/Vomiting Last Admin: 08/23/18 05:58 Dose: 4 mg Admin: 08/23/18 01:50 Dose: 4 mg Oxycodone HCl (Oxycodone) 5 mg PO Q4H PRN PRN Reason: Pain (moderate 4-6) Last Admin: 08/23/18 01:44 Dose: 5 mg Pantoprazole Sodium (Protonix) 40 mg PO BEDTIME [facility] [place] Pantoprazole Sodium (Protonix Iv) 40 mg IVPUSH DAILY [facility] [place] Assessment/Plan Comment:: ASSESSMENT AND PLAN; This is a 77 year old female admitted Observation status for urinary tract infection. She came to ER with her daughter, reports abdominal pain. felt her urine felt "warm" when she urinated. Reports had not eaten or drank much in the past 2 days. In ER had a CT abdomen-pelvis which showed moderate constipation. and urine sample shows acute UTI. CBC WBC normal. She had a enema and medication for constipation, had a large stool but felt she was too weak to go home. URINARY TRACT INFECTION- -IV Levaquin every 24 hours -Blood and urine cultures pending -IV fluids for hydration DEHYDRATION-poor oral intake over the past few days with progressive weakness -IV fluids for hydration MAINTENANCE ISSUES -DVT prophylaxis; Lovenox 30 mg subcutaneous daily -GI prophylaxis; Protonix 40 mg IV daily -Rosales catheter; not indicated, ileal conduit -Nutrition: regular diet -Nicotine dependence; not required CODE STATUS- FULL CODE ADMISSION STATUS-Observation DISPOSITION-anticipate discharge to home after the hospital stay. PRIMARY CARE PROVIDER- Dr. Ernie Aleman Hospitalist: Dr. Penaloza
[2018-08-23] MEDS ORDERED: Enoxaparin 30 MG/0.3 ML Syringe SUBCUT SCH (09:00)
[2018-08-23] MEDS ORDERED: Pantoprazole 40 MG Vial IVPUSH SCH (09:00)
[2018-08-23] MEDS: Gabapentin 300 MG Cap PO SCH ×2 (11:18→20:51)
[2018-08-23] MEDS: Enoxaparin 40 MG/0.4 ML Syringe SUBCUT SCH (11:37)
[2018-08-23] MEDS ORDERED: Sodium Phosphate,Monobasic/Sodium Phosphate,Dibasic Enema 133 ML Bottle RECTAL PRN (12:58)
--- NOTE | 2018-08-23 13:20 | PCM.PN ---
- General Info Date of Service: 08/23/18 Subjective Update: Ms. Andre is a 77-year-old woman who was admitted through the emergency department last night observation status with weakness secondary to underlying urinary tract infection as well as nausea secondary to constipation. She reports that she has had ongoing and long-standing difficulty with constipation as well as nausea. Urinalysis obtained in the emergency department is somewhat iffy concerning urinary tract infection, culture is pending. She is had a few small bowel movements since admission but continues to feel bloated and constipated with intermittent nausea. Functional Status: Reports: Ambulating, Urinating - Review of Systems General: Reports: Weakness. Denies: Fever, Chills Pulmonary: Reports: No Symptoms Cardiovascular: Reports: No Symptoms Gastrointestinal: Reports: Constipation, Decreased Appetite, Flatus, Nausea, Vomiting. Denies: Diarrhea, Difficulty Swallowing Genitourinary: Reports: No Symptoms - Patient Data Vitals - Most Recent: Last Vital Signs Temp 98.1 F 08/23/18 10:34 Pulse 83 08/23/18 10:34 Resp 18 08/23/18 10:34 BP 135/75 08/23/18 10:34 Pulse Ox 97 08/23/18 10:34 Weight - Most Recent: 153 lb 6.397 oz I&O - Last 24 Hours: Intake & Output 08/22/18 08/23/18 08/23/18 22:59 06:59 14:59 Intake Total 3563 Output Total 950 950 Balance 2613 -950 Lab Results Last 24 Hours: Laboratory Results - last 24 hr 08/22/18 08/22/18 08/22/18 Range/Units 18:32 18:38 18:38 WBC 10.7 (4.5-11.0) K/uL RBC 5.14 (3.30-5.50) M/uL Hgb 15.2 H (12.0-15.0) g/dL Hct 45.9 (36.0-48.0) % MCV 89 (80-98) fL MCH 30 (27-31) pg MCHC 33 (32-36) % Plt Count 302 (150-400) K/uL Neut % (Auto) 92 H (36-66) % Lymph % (Auto) 5 L (24-44) % Sumner % (Auto) 3 (2-6) % Eos % (Auto) 0 L (2-4) % Baso % (Auto) 0 (0-1) % Sodium (140-148) mmol/L Potassium (3.6-5.2) mmol/L Chloride (100-108) mmol/L Carbon Dioxide (21-32) mmol/L Anion Gap (5.0-14.0) mmol/L BUN (7-18) mg/dL Creatinine (0.6-1.0) mg/dL Est Cr Clr Drug Dosing mL/min Estimated GFR (MDRD) (>60) Glucose (74-106) mg/dL Lactic Acid (0.4-2.0) mmol/L Calcium (8.5-10.1) mg/dL Total Bilirubin (0.2-1.0) mg/dL AST (15-37) U/L ALT (12-78) U/L Alkaline Phosphatase (46-116) U/L C-Reactive Protein 1.18 H (0.0-0.3) mg/dL Total Protein (6.4-8.2) g/dL Albumin (3.4-5.0) g/dL Globulin (2.3-3.5) g/dL Albumin/Globulin Ratio (1.2-2.2) Urine Color Yellow Urine Appearance Cloudy Urine pH 6.0 (4.5-8.0) Ur Specific [place] 1.015 (1.008-1.030) Urine Protein Negative (NEGATIVE) mg/dL Urine Glucose (UA) Normal (NEGATIVE) mg/dL Urine Ketones 50 H (NEGATIVE) mg/dL Urine Occult Blood Trace (NEGATIVE) Urine Nitrite Positive H (NEGATIVE) Urine Bilirubin Negative (NEGATIVE) Urine Urobilinogen Normal (NORMAL) mg/dL Ur Leukocyte Esterase Small (NEGATIVE) Urine RBC 0-5 (0-5) Urine WBC 0-5 (0-5) Ur Epithelial Cells Few Amorphous Sediment Not seen Urine Bacteria Many Urine Mucus Not seen 08/22/18 08/22/18 08/23/18 Range/Units 18:38 23:00 06:05 WBC 6.1 (4.5-11.0) K/uL RBC 4.30 (3.30-5.50) M/uL Hgb 12.4 D (12.0-15.0) g/dL Hct 38.9 (36.0-48.0) % MCV 91 (80-98) fL MCH 29 (27-31) pg MCHC 32 (32-36) % Plt Count 246 (150-400) K/uL Neut % (Auto) 88 H (36-66) % Lymph % (Auto) 7 L (24-44) % Sumner % (Auto) 5 (2-6) % Eos % (Auto) 0 L (2-4) % Baso % (Auto) 0 (0-1) % Sodium 141 (140-148) mmol/L Potassium 3.5 L (3.6-5.2) mmol/L Chloride 105 (100-108) mmol/L Carbon Dioxide 28 (21-32) mmol/L Anion Gap 11.5 (5.0-14.0) mmol/L BUN 15 (7-18) mg/dL Creatinine 0.8 (0.6-1.0) mg/dL Est Cr Clr Drug Dosing 28.72 mL/min Estimated GFR (MDRD) > 60 (>60) Glucose 111 H (74-106) mg/dL Lactic Acid 1.7 (0.4-2.0) mmol/L Calcium 9.0 (8.5-10.1) mg/dL Total Bilirubin 0.7 (0.2-1.0) mg/dL AST 13 L (15-37) U/L ALT 22 (12-78) U/L Alkaline Phosphatase 81 (46-116) U/L C-Reactive Protein (0.0-0.3) mg/dL Total Protein 7.0 (6.4-8.2) g/dL Albumin 3.7 (3.4-5.0) g/dL Globulin 3.3 (2.3-3.5) g/dL Albumin/Globulin Ratio 1.1 L (1.2-2.2) Urine Color Urine Appearance Urine pH (4.5-8.0) Ur Specific [place] (1.008-1.030) Urine Protein (NEGATIVE) mg/dL Urine Glucose (UA) (NEGATIVE) mg/dL Urine Ketones (NEGATIVE) mg/dL Urine Occult Blood (NEGATIVE) Urine Nitrite (NEGATIVE) Urine Bilirubin (NEGATIVE) Urine Urobilinogen (NORMAL) mg/dL Ur Leukocyte Esterase (NEGATIVE) Urine RBC (0-5) Urine WBC (0-5) Ur Epithelial Cells Amorphous Sediment Urine Bacteria Urine Mucus 08/23/18 Range/Units 06:05 WBC (4.5-11.0) K/uL RBC (3.30-5.50) M/uL Hgb (12.0-15.0) g/dL Hct (36.0-48.0) % MCV (80-98) fL MCH (27-31) pg MCHC (32-36) % Plt Count (150-400) K/uL Neut % (Auto) (36-66) % Lymph % (Auto) (24-44) % Sumner % (Auto) (2-6) % Eos % (Auto) (2-4) % Baso % (Auto) (0-1) % Sodium 140 (140-148) mmol/L Potassium 3.7 (3.6-5.2) mmol/L Chloride 108 (100-108) mmol/L Carbon Dioxide 25 (21-32) mmol/L Anion Gap 6.9 (5.0-14.0) mmol/L BUN 8 (7-18) mg/dL Creatinine 0.6 (0.6-1.0) mg/dL Est Cr Clr Drug Dosing 78.78 mL/min Estimated GFR (MDRD) > 60 (>60) Glucose 110 H (74-106) mg/dL Lactic Acid (0.4-2.0) mmol/L Calcium 7.8 L (8.5-10.1) mg/dL Total Bilirubin (0.2-1.0) mg/dL AST (15-37) U/L ALT (12-78) U/L Alkaline Phosphatase (46-116) U/L C-Reactive Protein (0.0-0.3) mg/dL Total Protein (6.4-8.2) g/dL Albumin (3.4-5.0) g/dL Globulin (2.3-3.5) g/dL Albumin/Globulin Ratio (1.2-2.2) Urine Color Urine Appearance Urine pH (4.5-8.0) Ur Specific [place] (1.008-1.030) Urine Protein (NEGATIVE) mg/dL Urine Glucose (UA) (NEGATIVE) mg/dL Urine Ketones (NEGATIVE) mg/dL Urine Occult Blood (NEGATIVE) Urine Nitrite (NEGATIVE) Urine Bilirubin (NEGATIVE) Urine Urobilinogen (NORMAL) mg/dL Ur Leukocyte Esterase (NEGATIVE) Urine RBC (0-5) Urine WBC (0-5) Ur Epithelial Cells Amorphous Sediment Urine Bacteria Urine Mucus Cristofer Results Last 24 Hours: Microbiology 08/22/18 18:50 Urine Culture - Preliminary Urine, Bladder 08/22/18 23:00 Clostridioides difficile (PCR) - Final Stool / Feces NEGATIVE CDIFF TOXIN 08/22/18 18:32 Stool Occult Blood (CRISTOFER) - Final Stool / Feces NEGATIVE OCCULT BLOOD REFERENCE RANGE: NEGATIVE Med Orders - Current: Current Medications Acetaminophen (Tylenol) 650 mg PO Q4H PRN PRN Reason: Pain (Mild 1-3)/fever Acetaminophen/Caffeine (Excedrin Tension Headache) 1 tab PO DAILY PRN PRN Reason: migraine Albuterol (Proventil Neb Soln) 2.5 mg NEB Q4H PRN PRN Reason: Shortness Of Breath/wheezing Bisacodyl (Dulcolax) 5 mg PO DAILY PRN PRN Reason: Constipation Bisacodyl (Dulcolax) 10 mg RECTAL ONETIME ONE Stop: 08/23/18 13:16 Docusate Sodium (Colace) 100 mg PO BID PRN PRN Reason: Constipation Enoxaparin Sodium (Lovenox) 40 mg SUBCUT DAILY [facility] Last Admin: 08/23/18 11:37 Dose: 40 mg Gabapentin (Neurontin) 600 mg PO BID [facility] Last Admin: 08/23/18 11:18 Dose: Not Given Ceftriaxone Sodium 1 gm/ (Sodium Chloride) 50 mls @ 100 mls/hr IV Q24H [facility] Melatonin (Melatonin) 6 mg PO BEDTIME PRN PRN Reason: Insomnia Morphine Sulfate (Morphine) 2 mg IVPUSH Q2H PRN PRN Reason: Pain (severe 7-10) Ondansetron HCl (Zofran Odt) 4 mg PO Q6H PRN PRN Reason: Nausea able to take PO Ondansetron HCl (Zofran) 4 mg IV Q4H PRN PRN Reason: Nausea/Vomiting Last Admin: 08/23/18 09:37 Dose: 4 mg Pantoprazole Sodium (Protonix) 40 mg PO BEDTIME [facility] Polyethylene Glycol (Miralax) 17 gm PO BID [facility] Senna/Docusate Sodium (Senna Plus) 1 tab PO BID [facility] Sodium Biphosphate/Sodium Phosphate (Fleet Enema) 133 ml RECTAL ONETIME PRN PRN Reason: Constipation Discontinued Medications Diphenhydramine HCl (Benadryl) 25 mg PO ONETIME ONE Stop: 08/23/18 01:17 Last Admin: 08/23/18 02:23 Dose: Not Given Enoxaparin Sodium (Lovenox) 30 mg SUBCUT DAILY [facility] Hydromorphone HCl (Dilaudid) 0.5 mg IVPUSH ONETIME ONE Stop: 08/22/18 18:27 Last Admin: 08/22/18 19:01 Dose: 0.5 mg Hydromorphone HCl (Dilaudid) 0.5 mg IVPUSH ONETIME ONE Stop: 08/22/18 20:39 Last Admin: 08/22/18 20:45 Dose: 0.5 mg Sodium Chloride (Normal Saline) 1,000 mls @ 999 mls/hr IV ASDIRECTED [facility] Last Admin: 08/22/18 18:59 Dose: 999 mls/hr Sodium Chloride (Normal Saline) 1,000 mls @ 999 mls/hr IV ASDIRECTED [facility] Last Admin: 08/22/18 20:34 Dose: 999 mls/hr Sodium Chloride (Normal Saline) 80 mls @ 3 mls/sec IV ASDIRECTED [facility] Last Admin: 08/22/18 20:22 Dose: 3 mls/sec Levofloxacin/Dextrose 500 mg/ (Premix) 100 mls @ 100 mls/hr IV ONETIME ONE Stop: 08/22/18 22:29 Last Admin: 08/22/18 21:47 Dose: 100 mls/hr Sodium Chloride (Normal Saline) 1,000 mls @ 999 mls/hr IV ASDIRECTED [facility] Last Admin: 08/22/18 23:24 Dose: 999 mls/hr Levofloxacin/Dextrose 500 mg/ (Premix) 100 mls @ 100 mls/hr IV Q24H [facility] Sodium Chloride (Normal Saline) 1,000 mls @ 125 mls/hr IV ASDIRECTED [facility] Last Admin: 08/23/18 09:33 Dose: 125 mls/hr Iopamidol (Isovue-300 (61%)) 100 ml IV . DIRECTED [facility] Last Admin: 08/22/18 20:22 Dose: 100 ml Lorazepam (Ativan) 1 mg IV Q6H PRN PRN Reason: Nausea/Vomiting Last Admin: 08/23/18 03:19 Dose: 1 mg Magnesium Citrate (Citrate Of Magnesia) 296 ml PO ONETIME ONE Stop: 08/22/18 21:32 Last Admin: 08/22/18 21:50 Dose: 296 ml Ondansetron HCl (Zofran) 4 mg IVPUSH ONETIME ONE Stop: 08/22/18 18:27 Last Admin: 08/22/18 19:01 Dose: 4 mg Ondansetron HCl (Zofran) 4 mg IVPUSH ONETIME ONE Stop: 08/22/18 23:02 Last Admin: 08/22/18 23:25 Dose: 4 mg Oxycodone HCl (Oxycodone) 5 mg PO Q4H PRN PRN Reason: Pain (moderate 4-6) Last Admin: 08/23/18 01:44 Dose: 5 mg Sodium Chloride (Saline Flush) 10 ml FLUSH ASDIRECTED PRN PRN Reason: Keep Vein Open Last Admin: 08/22/18 20:22 Dose: 10 ml - Exam Quality Assessment: DVT Prophylaxis General: Alert, Oriented, Cooperative, Mild Distress Lungs: Clear to Auscultation, Normal Respiratory Effort Cardiovascular: Regular Rate, Regular Rhythm, No Murmurs GI/Abdominal Exam: Soft, No Organomegaly, Distended, Tender. No: Guarding, Rigid, Rebound - Problem List Review Problem List Initiated/Reviewed/Updated: Yes - My Orders Last 24 Hours: My Active Orders 08/23/18 12:58 Bisacodyl [Dulcolax] 10 mg RECTAL ONETIME ONE Na Phos,M-B/Na Phos,DI-B [Fleet Enema] 133 ml RECTAL ONETIME PRN 08/23/18 13:00 Docusate Sodium/Sennosides [Senna Plus] 1 tab PO BID Polyethylene Glycol 3350 [MiraLAX] 17 gm PO BID cefTRIAXone [Rocephin] 1 gm Sodium Chloride 0.9% [Normal Saline] 50 ml IV Q24H 08/23/18 13:02 Convert IV to Saline Lock [OM.PC] Routine - Plan Plan:: ASSESSMENT AND PLAN URINARY TRACT INFECTION- -Rocephin 1 g IV every 24 hours -Blood and urine cultures pending -Saline lock IV ACUTE ON CHRONIC [id number] history, CT scan showed evidence of constipation, no other abnormalities identified. -Senna S1 tablet twice daily -MiraLAX 17 g by mouth twice a day -Dulcolax suppository now -Fleet enema if no results from suppository DEHYDRATION-resolved -Saline lock IV MAINTENANCE ISSUES -DVT prophylaxis; Lovenox 30 mg subcutaneous daily -GI prophylaxis; Protonix 40 mg IV daily -Rosales catheter; not indicated, ileal conduit -Nutrition: regular diet -Nicotine dependence; not required CODE STATUS- FULL CODE ADMISSION STATUS-Observation DISPOSITION-anticipate discharge to home after the hospital stay. PRIMARY CARE PROVIDER- Dr. Ernie Aleman Hospitalist: Dr. Penaloza
[2018-08-23] MEDS: Bisacodyl 10 MG Supp RECTAL ONE ×2 (13:59→14:48)
[2018-08-23] MEDS: cefTRIAXone 1 GM in Sodium Chloride 0.9% 50 ML IV SCH (13:59)
[2018-08-23] MEDS: Polyethylene Glycol 3350 Powder 17 GM Packet PO SCH ×2 (13:59→21:30)
[2018-08-23] MEDS: Acetaminophen/Caffeine 500-65 MG Tab PO PRN (14:09)
[2018-08-23] MEDS ORDERED: SOLIFENACIN 10 MG PO SCH (19:45)
[2018-08-23] MEDS ORDERED: FORMOTEROL INH SCH (21:00)
[2018-08-23] MEDS ORDERED: BUDESONIDE INH SCH (21:00)
[2018-08-23] MEDS ORDERED: Levofloxacin/Dextrose 5%-Water 500 MG in Premix Bag 1 BAG IV SCH (21:00)
[2018-08-23] MEDS ORDERED: Pantoprazole 40 MG Tab.CR PO SCH (21:00)
[2018-08-23] MEDS ORDERED: GABAPENTIN 600 MG PO SCH (21:15)
[2018-08-23] MEDS ORDERED: SYMBICORT INH SCH (21:15)
[2018-08-23] MEDS: LUTEIN 20 MG PO SCH (21:25)
[2018-08-23] MEDS: VESICARE 10 MG PO SCH (21:27)
[2018-08-23] MEDS: ACLIDINIUM BROMIDE 400 MCG INH SCH (21:30)
[2018-08-24] MEDS: Enoxaparin 40 MG/0.4 ML Syringe SUBCUT SCH (08:54)
[2018-08-24] MEDS: Polyethylene Glycol 3350 Powder 17 GM Packet PO SCH (08:55)
[2018-08-24] MEDS ORDERED: Lactobacillus Rhamnosus GG (Probiotic) Cap PO SCH (09:00)
[2018-08-24] MEDS ORDERED: GABAPENTIN 600 MG PO SCH (09:00)
[2018-08-24] MEDS ORDERED: SYMBICORT INH SCH (09:00)
[2018-08-24] MEDS ORDERED: VESICARE 10 MG PO SCH (09:08)
[2018-08-24] MEDS: LUTEIN 20 MG PO SCH (10:16)
[2018-08-24] MEDS: ACLIDINIUM BROMIDE 400 MCG INH SCH (10:16)
[2018-08-24] MEDS: Acetaminophen/Caffeine 500-65 MG Tab PO PRN (10:22)
[2018-08-24 11:19] VITALS: BP 128/73
[2018-08-24] MEDS: VESICARE 10 MG PO SCH (11:41)
[2018-08-24] MEDS: cefTRIAXone 1 GM in Sodium Chloride 0.9% 50 ML IV SCH (13:29)
--- NOTE | 2018-08-24 14:36 | PCM.DCSUM1 ---
Discharge Summary - Hospital Course Brief History: His Andre is a 77-year-old woman who was admitted through the emergency department observation status because of constipation with abdominal fullness, nausea, and vomiting. - Discharge Data Discharge Date: 08/24/18 Discharge Disposition: Home, Self-Care 01 Condition: Stable - Discharge Diagnosis/Problem(s) (1) Dehydration SNOMED Code(s): 13916390 ICD Code: E86.0 - DEHYDRATION Status: Acute Priority: High Current Visit: Yes (2) UTI (urinary tract infection) SNOMED Code(s): 74168951 ICD Code: N39.0 - URINARY TRACT INFECTION, SITE NOT SPECIFIED Status: Acute Priority: High Current Visit: Yes Qualifiers: Urinary tract infection type: acute cystitis Hematuria presence: with hematuria Qualified Code(s): N30.01 - Acute cystitis with hematuria (3) Constipation SNOMED Code(s): 17326597 ICD Code: K59.00 - CONSTIPATION, UNSPECIFIED Status: Acute Priority: Low Current Visit: Yes Qualifiers: Constipation type: chronic idiopathic constipation Qualified Code(s): K59.04 - Chronic idiopathic constipation - Patient Summary/Data Hospital Course: Ms. Andre is a 77-year-old woman who was admitted through the emergency department last night observation status with weakness secondary to underlying urinary tract infection as well as nausea secondary to constipation. She reports that she has had ongoing and long-standing difficulty with constipation as well as nausea. Urinalysis obtained in the emergency department is somewhat iffy concerning urinary tract infection, culture is pending. She is had a few small bowel movements since admission but continues to feel bloated and constipated with intermittent nausea. She did receive IV fluids after admission that were continued until the following morning. She also was started on IV ceftriaxone for management of urinary tract infection. Because of ongoing symptoms related to her, patient she was treated aggressively with Senokot as well as MiraLAX, this did result in several bowel movements and she noted improvement in her abdominal distention as well as nausea and vomiting. She will be discharged home with aggressive bowel management program including probiotic, senna plus twice daily, and MiraLAX once daily. Urine culture did grow out Escherichia coli which was found to be pansensitive. She will be discharged with an additional 3 days of oral antibiotic therapy with cephalexin. Activity will be as tolerated and she will resume her usual high fiber diet. Follow-up appointment will be scheduled with Dr. Aleman within one week. - Patient Instructions Diet: Usual Diet as Tolerated Activity: As Tolerated Other/Special Instructions: Follow-up appointment with Dr. Aleman as scheduled - Discharge Plan *PRESCRIPTION DRUG MONITORING PROGRAM REVIEWED*: Not Applicable *COPY OF PRESCRIPTION DRUG MONITORING REPORT IN PATIENT DOUGLAS: Not Applicable Prescriptions/Med Rec: Cephalexin [Keflex] 250 mg PO Q8H #9 capsule Polyethylene Glycol 3350 [MiraLAX] 17 gm PO DAILY #30 packet Sennosides/Docusate Sodium [Senna Plus Tablet] 1 each PO BID #60 tablet Home Medications: Home Meds Dexlansoprazole [Dexilant] 60 mg PO BEDTIME 10/08/14 [History] Gabapentin 600 mg PO BID 10/08/14 [History] Aclidinium Howard [Tudorza Pressair] 400 mcg PO DAILY 02/09/15 [History] Budesonide/Formoterol [Symbicort 160-4.5 MCG] 1 - 2 puff IH BID 02/09/15 [ History] Lutein 20 mg PO DAILY 02/09/15 [History] Solifenacin [Vesicare] 10 mg PO DAILY 02/09/15 [History] Acetaminophen/Caffeine [Excedrin Tension Headache] 1 tab PO DAILY PRN 05/30/18 [ History] Ca Carbonate/Vitamin D3/Vit K [Calcium + D Soft Chewable Tab] 2,000 mg PO BID [History] Ibuprofen/Pseudoephedrine HCl [Advil Cold & Sinus Caplet] 2 tab PO DAILY [History] Lactobacillus Acidophilus [Acidophilus] 0.5 mg PO DAILY 05/30/18 [History] MV-Mn/VitC/Asbna/Glu/Tia/HC124 [Airborne Gummies] 2 tab PO DAILY 05/30/18 [ History] Cephalexin [Keflex] 250 mg PO Q8H #9 capsule 08/24/18 [Rx] Polyethylene Glycol 3350 [MiraLAX] 17 gm PO DAILY #30 packet 08/24/18 [Rx] Sennosides/Docusate Sodium [Senna Plus Tablet] 1 each PO BID #60 tablet [Rx] Referrals: Ernie Aleman Sr, MD [Primary Care Provider] - 08/27/18 9:00 am - Discharge Summary/Plan Comment DC Time >30 min.: No - Patient Data Vitals - Most Recent: Last Vital Signs Temp 98.9 F 08/24/18 11:00 Pulse 65 08/24/18 11:00 Resp 18 08/24/18 11:00 BP 128/73 08/24/18 11:00 Pulse Ox 97 08/24/18 11:00 Weight - Most Recent: 153 lb 6.397 oz I&O - Last 24 hours: Intake & Output 08/23/18 08/24/18 08/24/18 22:59 06:59 14:59 Intake Total 1370 586 Output Total 300 Balance 1070 586 ADILENE Results - Last 24 hrs: Microbiology 08/22/18 18:50 Urine Culture - Final Urine, Bladder Escherichia Coli Med Orders - Current: Current Medications Acetaminophen (Tylenol) 650 mg PO Q4H PRN PRN Reason: Pain (Mild 1-3)/fever Acetaminophen/Caffeine (Excedrin Tension Headache) 1 tab PO DAILY PRN PRN Reason: migraine Last Admin: 08/24/18 10:22 Dose: 1 tab Albuterol (Proventil Neb Soln) 2.5 mg NEB Q4H PRN PRN Reason: Shortness Of Breath/wheezing Bisacodyl (Dulcolax) 5 mg PO DAILY PRN PRN Reason: Constipation Docusate Sodium (Colace) 100 mg PO BID PRN PRN Reason: Constipation Enoxaparin Sodium (Lovenox) 40 mg SUBCUT DAILY [facility] Last Admin: 08/24/18 08:54 Dose: 40 mg Ceftriaxone Sodium 1 gm/ (Sodium Chloride) 50 mls @ 100 mls/hr IV Q24H [facility] Last Admin: 08/24/18 13:29 Dose: 100 mls/hr Lactobacillus Rhamnosus (Culturelle) 1 cap PO DAILY [facility] Last Admin: 08/24/18 10:16 Dose: 1 cap Melatonin (Melatonin) 6 mg PO BEDTIME PRN PRN Reason: Insomnia Last Admin: 08/23/18 21:27 Dose: 6 mg Morphine Sulfate (Morphine) 2 mg IVPUSH Q2H PRN PRN Reason: Pain (severe 7-10) Last Admin: 08/23/18 23:51 Dose: 2 mg Aclidinium Howard ( Tudorza Pressair) 400 Mcg Inhaler Own Med 0 each INH DAILY [facility] Last Admin: 08/24/18 10:16 Dose: Not Given Lutein 20 Mg Tab (Own Med) 0 mg PO DAILY [facility] Last Admin: 08/24/18 10:16 Dose: Not Given Ondansetron HCl (Zofran Odt) 4 mg PO Q6H PRN PRN Reason: Nausea able to take PO Ondansetron HCl (Zofran) 4 mg IV Q4H PRN PRN Reason: Nausea/Vomiting Last Admin: 08/23/18 09:37 Dose: 4 mg Dexilant 60mg Pom* (*) 0 each PO BEDTIME [facility] Vesicare 10mg Pom* (*) 0 each PO DAILY [facility] Last Admin: 08/24/18 10:15 Dose: 1 each Gabapentin 600mg (Pom) 0 each PO BID [facility] Last Admin: 08/24/18 10:14 Dose: 1 each Symbicort 160/4.5 (Mcg Pom) 0 each INH BIDRT [facility] Last Admin: 08/24/18 10:16 Dose: 1 each Polyethylene Glycol (Miralax) 17 gm PO BID [facility] Last Admin: 08/24/18 08:55 Dose: 17 gm Senna/Docusate Sodium (Senna Plus) 1 tab PO BID [facility] Last Admin: 08/24/18 10:17 Dose: 1 tab Sodium Biphosphate/Sodium Phosphate (Fleet Enema) 133 ml RECTAL ONETIME PRN PRN Reason: Constipation Discontinued Medications Bisacodyl (Dulcolax) 10 mg RECTAL ONETIME ONE Stop: 08/23/18 13:16 Last Admin: 08/23/18 14:48 Dose: Not Given Diphenhydramine HCl (Benadryl) 25 mg PO ONETIME ONE Stop: 08/23/18 01:17 Last Admin: 08/23/18 02:23 Dose: Not Given Enoxaparin Sodium (Lovenox) 30 mg SUBCUT DAILY [facility] Gabapentin (Neurontin) 600 mg PO BID [facility] Last Admin: 08/23/18 20:51 Dose: 600 mg Hydromorphone HCl (Dilaudid) 0.5 mg IVPUSH ONETIME ONE Stop: 08/22/18 18:27 Last Admin: 08/22/18 19:01 Dose: 0.5 mg Hydromorphone HCl (Dilaudid) 0.5 mg IVPUSH ONETIME ONE Stop: 08/22/18 20:39 Last Admin: 08/22/18 20:45 Dose: 0.5 mg Sodium Chloride (Normal Saline) 1,000 mls @ 999 mls/hr IV ASDIRECTED [facility] Last Admin: 08/22/18 18:59 Dose: 999 mls/hr Sodium Chloride (Normal Saline) 1,000 mls @ 999 mls/hr IV ASDIRECTED [facility] Last Admin: 08/22/18 20:34 Dose: 999 mls/hr Sodium Chloride (Normal Saline) 80 mls @ 3 mls/sec IV ASDIRECTED [facility] Last Admin: 08/22/18 20:22 Dose: 3 mls/sec Levofloxacin/Dextrose 500 mg/ (Premix) 100 mls @ 100 mls/hr IV ONETIME ONE Stop: 08/22/18 22:29 Last Admin: 08/22/18 21:47 Dose: 100 mls/hr Sodium Chloride (Normal Saline) 1,000 mls @ 999 mls/hr IV ASDIRECTED [facility] Last Admin: 08/22/18 23:24 Dose: 999 mls/hr Levofloxacin/Dextrose 500 mg/ (Premix) 100 mls @ 100 mls/hr IV Q24H [facility] Sodium Chloride (Normal Saline) 1,000 mls @ 125 mls/hr IV ASDIRECTED [facility] Last Admin: 08/23/18 09:33 Dose: 125 mls/hr Iopamidol (Isovue-300 (61%)) 100 ml IV . DIRECTED [facility] Last Admin: 08/22/18 20:22 Dose: 100 ml Lorazepam (Ativan) 1 mg IV Q6H PRN PRN Reason: Nausea/Vomiting Last Admin: 08/23/18 03:19 Dose: 1 mg Magnesium Citrate (Citrate Of Magnesia) 296 ml PO ONETIME ONE Stop: 08/22/18 21:32 Last Admin: 08/22/18 21:50 Dose: 296 ml Budesonide/Formoterol ( Symbicort) 160/4.5 Mcg Inhaler Own Med 0 each INH BID [facility] Last Admin: 08/23/18 21:35 Dose: Not Given Solifenacin ( Vesicare) 10 Mg Tablet Own Med 0 each PO DAILY [facility] Last Admin: 08/23/18 21:34 Dose: Not Given Ondansetron HCl (Zofran) 4 mg IVPUSH ONETIME ONE Stop: 08/22/18 18:27 Last Admin: 08/22/18 19:01 Dose: 4 mg Ondansetron HCl (Zofran) 4 mg IVPUSH ONETIME ONE Stop: 08/22/18 23:02 Last Admin: 08/22/18 23:25 Dose: 4 mg Oxycodone HCl (Oxycodone) 5 mg PO Q4H PRN PRN Reason: Pain (moderate 4-6) Last Admin: 08/23/18 01:44 Dose: 5 mg Pantoprazole Sodium (Protonix) 40 mg PO BEDTIME [facility] Last Admin: 08/23/18 20:51 Dose: 40 mg Patient's Own MedicationVesicare 10 Mg 1 each PO DAILY [facility] Last Admin: 08/24/18 11:41 Dose: Not Given Patient's Own Medication Gabapentin 600 Mg 1 each PO BID [facility] Last Admin: 08/23/18 21:26 Dose: Not Given Patient's Own Medication Symbicort 160/4.5 Mcg 0 each INH BID [facility] Last Admin: 08/23/18 21:30 Dose: 1 each Sodium Chloride (Saline Flush) 10 ml FLUSH ASDIRECTED PRN PRN Reason: Keep Vein Open Last Admin: 08/22/18 20:22 Dose: 10 ml - Exam General: Reports: Alert, Oriented, Cooperative, No Acute Distress Lungs: Reports: Clear to Auscultation, Normal Respiratory Effort Cardiovascular: Reports: Regular Rate, Regular Rhythm, No Murmurs GI/Abdominal Exam: Soft, Non-Tender, No Organomegaly, No Distention
[2018-08-24] MEDS ORDERED: DEXILANT 60 MG PO SCH (21:00)
== END 2018-08-24 15:30 | disposition home or self-care (01) ==
LOC: JP.ED 16:44 → JP.MS 08-23 00:15
PROVIDERS: ADMIT Hospitalist; ATTEND Hospitalist
DX: N30.01 Acute cystitis with hematuria (principal); E86.0 Dehydration; J45.909 Unspecified asthma, uncomplicated; K21.9 Gastro-esophageal reflux disease without esophagitis; Z79.899 Other long term (current) drug therapy
CPT/HCPCS: 36415; 74177; 80048; 80053; 81001; 82272; 83605; 85025; 86140; 87086; 87088; 87186; 87493; 94640; 96361; 96365; 96375; 96376; 99285; A9270; J0696; J1170; J1650; J1956; J2060; J2270; J2405; J7030; J7050; Q9967

== ENCOUNTER 2021-10-31 05:21 | Day surgery (SDC) | payer MEDICARE, OTHER ==
[2021-10-31] MEDS ORDERED: Dextrose 5%-Lactated Ringers 1,000 ML IV SCH (06:30)
[2021-10-31] MEDS ORDERED: Albuterol/Ipratropium 3.0-0.5 MG/3 ML Neb Soln NEB ONE (07:00)
[2021-10-31] MEDS ORDERED: Propofol 200 MG/20 ML SDV ONE (07:07)
[2021-10-31] MEDS ORDERED: Fluconazole/Normal Saline 400 MG in Premix Bag 1 BAG IV ONE (08:00)
[2021-10-31 09:41] VITALS: BP 129/68; PULSE 59
== END 2021-10-31 10:30 | disposition home or self-care (01) ==
LOC: JP.SDS 05:21
PROVIDERS: ATTEND Surgery
DX: K22.70 Barrett's esophagus without dysplasia (principal); K21.00 Gastro-esophageal reflux disease with esophagitis, without bleeding; R13.13 Dysphagia, pharyngeal phase; G47.33 Obstructive sleep apnea (adult) (pediatric); I10 Essential (primary) hypertension; K44.9 Diaphragmatic hernia without obstruction or gangrene; J44.9 Chronic obstructive pulmonary disease, unspecified; Z79.83 Long term (current) use of bisphosphonates; Z79.810 Long term (current) use of selective estrogen receptor modulators (SERMs); Z79.891 Long term (current) use of opiate analgesic; Z79.899 Other long term (current) drug therapy
CPT/HCPCS: 43239; 87081; 88305; 94640; J1450; J2704; J7121; J7620

== ENCOUNTER 2022-08-21 11:56 | Emergency (ER) | payer MEDICARE, OTHER ==
[2022-08-21 12:04] LABS: BASOPHILS ABSOLUTE AUTO 0.06 K/uL (0.00-0.10); EOSINOPHILS ABSOLUTE AUTO 0.14 K/uL (0.00-0.40); EOSINOPHILS PERCENT AUTO 2.3 % (0.0-5.4); HEMATOCRIT 40.5 % (34.3-46.0); HEMOGLOBIN 13.5 g/dL (11.2-15.5); IMMATURE GRAN ABSOLUTE AUTO 0.04 K/uL (0.00-0.23); IMMATURE GRAN PERCENT AUTO 0.7 % (0.0-0.7); LYMPHOCYTES ABSOLUTE AUTO 1.62 K/uL (0.8-3.3); LYMPHOCYTES PERCENT AUTO 26.5 % (11.4-47.7); MEAN CORPUSCULAR HEMOGLOBIN 29.3 pg (31.6-35.5); MEAN CORPUSCULAR HGB CONC 33.3 g/dL (31.6-35.5); MONOCYTES ABSOLUTE AUTO 0.48 K/uL (0.20-0.90); MONOCYTES PERCENT AUTO 7.8 % (3.3-12.6); NEUTROPHILS ABSOLUTE AUTO 3.78 K/uL (1.0-7.6); NEUTROPHILS PERCENT AUTO 61.7 % (40.0-78.1); PLATELET COUNT,PLT 294 K/uL (130-375); WHITE BLOOD CELL COUNT,WBC 6.1 K/uL (3.2-11.0)
[2022-08-21 12:20] LABS: ALANINE AMINOTRANSFERASE,ALT 17 U/L (12-78); ALBUMIN 3.5 g/dL (3.4-5.0); ALKALINE PHOSPHATASE 99 U/L (46-116); ANION GAP 6.6 mmol/L (5.0-14.0); ASPARTATE AMNIOTRANSFERASE,AST 11 U/L (15-37); BILIRUBIN TOTAL 0.6 mg/dL (0.2-1.0); BLOOD UREA NITROGEN,BUN 9 mg/dL (7-18); CALCIUM 8.8 mg/dL (8.5-10.1); CARBON DIOXIDE,CO2 29 mmol/L (21-32); CHLORIDE,CL 105 mmol/L (100-108); CREATININE 0.7 mg/dL (0.6-1.0); EST CRCL DRUG DOSING (CG) 58.33 mL/min; ESTIMATED GFR 88 mL/min (>60); GLUCOSE RANDOM 88 mg/dL (74-106); POTASSIUM,K 3.9 mmol/L (3.6-5.2); PROTEIN TOTAL,TP 7.1 g/dL (6.4-8.2); PROTHROMBIN TIME 9.9 sec (9.2-10.6); PTT,PARTIAL THROMBOPLSTIN TIME 25.8 sec (21.8-27.3); SODIUM,NA 141 mmol/L (140-148)
[2022-08-21] MEDS ORDERED: Diphtheria,Pertussis(Acell),Tetanus Vaccine 0.5 ML Syringe IM ONE (12:52)
[2022-08-21] MEDS ORDERED: Meclizine 25 MG Tab PO ONE (13:00)
[2022-08-21] MEDS ORDERED: Acetaminophen 325 MG Tab PO ONE (13:00)
[2022-08-21 15:04] VITALS: BP 141/72; PULSE 67
== END 2022-08-21 15:11 | disposition home or self-care (01) ==
LOC: JP.ED 11:56
DX: S00.83XA Contusion of other part of head, initial encounter (principal); S40.022A Contusion of left upper arm, initial encounter; S80.11XA Contusion of right lower leg, initial encounter; G44.319 Acute post-traumatic headache, not intractable; I48.91 Unspecified atrial fibrillation; J45.909 Unspecified asthma, uncomplicated; K21.9 Gastro-esophageal reflux disease without esophagitis; Z23 Encounter for immunization; Z79.01 Long term (current) use of anticoagulants; Z79.899 Other long term (current) drug therapy; W18.30XA Fall on same level, unspecified, initial encounter
CPT/HCPCS: 36415; 70450; 80053; 85025; 85610; 85730; 90471; 90715; 99284; A9270

== ENCOUNTER 2023-03-14 18:38 | Emergency (ER) | payer MEDICARE, OTHER ==
[2023-03-14] MEDS ORDERED: Albuterol 0.083% 2.5 MG/3 ML Neb Soln NEB ONE (21:04)
[2023-03-14 22:39] VITALS: BP 133/73; PULSE 92
[2023-03-14] MEDS ORDERED: Ketorolac 30 MG/ML SDV IVPUSH ONE (23:40)
== END 2023-03-15 11:49 | disposition home or self-care (01) ==
LOC: JP.ED 18:38
DX: S80.01XA Contusion of right knee, initial encounter (principal); S70.01XA Contusion of right hip, initial encounter; E78.00 Pure hypercholesterolemia, unspecified; I48.91 Unspecified atrial fibrillation; K21.9 Gastro-esophageal reflux disease without esophagitis; Z90.49 Acquired absence of other specified parts of digestive tract; Z90.710 Acquired absence of both cervix and uterus; Z79.899 Other long term (current) drug therapy; W10.9XXA Fall (on) (from) unspecified stairs and steps, initial encounter
CPT/HCPCS: 73502; 73562; 73700; 76377; 94640; 96374; 99284; J1885

== ENCOUNTER 2024-04-01 11:46 | Emergency (ER) | payer MEDICARE, OTHER ==
[2024-04-01 12:04] LABS: BASOPHILS ABSOLUTE AUTO 0.06 K/uL (0.00-0.10); BASOPHILS PERCENT AUTO 1.2 % (0.1-1.3); EOSINOPHILS ABSOLUTE AUTO 0.15 K/uL (0.00-0.40); EOSINOPHILS PERCENT AUTO 2.9 % (0.0-5.4); HEMATOCRIT 43.2 % (34.3-46.0); HEMOGLOBIN 14.8 g/dL (11.2-15.5); IMMATURE GRAN PERCENT AUTO 0.4 % (0.0-0.7); LYMPHOCYTES ABSOLUTE AUTO 1.58 K/uL (0.8-3.3); LYMPHOCYTES PERCENT AUTO 30.9 % (11.4-47.7); MEAN CORPUSCULAR HEMOGLOBIN 30.1 pg (31.6-35.5); MEAN CORPUSCULAR HGB CONC 34.3 g/dL (31.6-35.5); MONOCYTES ABSOLUTE AUTO 0.42 K/uL (0.20-0.90); MONOCYTES PERCENT AUTO 8.2 % (3.3-12.6); NEUTROPHILS ABSOLUTE AUTO 2.89 K/uL (1.0-7.6); NEUTROPHILS PERCENT AUTO 56.4 % (40.0-78.1); PLATELET COUNT,PLT 272 K/uL (130-375); RED BLOOD CELL COUNT 4.91 M/uL (3.77-5.24); WHITE BLOOD CELL COUNT,WBC 5.1 K/uL (3.2-11.0)
[2024-04-01 12:13] LABS: IMMATURE GRAN ABSOLUTE AUTO 0.02 K/uL (0.00-0.23)
[2024-04-01] MEDS: Alum Hydrox/Mag Hydrox/Simeth 15 ML, Lidocaine 2% 15 ML PO ONE (12:19)
[2024-04-01 12:25] LABS: A/G RATIO 1.2 (1.2-2.2); ALANINE AMINOTRANSFERASE,ALT 16 U/L (12-78); ALBUMIN 3.6 g/dL (3.4-5.0); ALKALINE PHOSPHATASE 63 U/L (46-116); ANION GAP 6.4 mmol/L (5.0-14.0); ASPARTATE AMNIOTRANSFERASE,AST 12 U/L (15-37); BILIRUBIN TOTAL 0.3 mg/dL (0.2-1.0); BLOOD UREA NITROGEN,BUN 21 mg/dL (7-18); CALCIUM 8.5 mg/dL (8.5-10.1); CARBON DIOXIDE,CO2 30 mmol/L (21-32); CHLORIDE,CL 107 mmol/L (100-108); EST CRCL DRUG DOSING (CG) 37.91 mL/min; ESTIMATED GFR 57 mL/min (>60); GLUCOSE RANDOM 91 mg/dL (74-106); PROTEIN TOTAL,TP 6.7 g/dL (6.4-8.2); SODIUM,NA 143 mmol/L (140-148); TROPONIN I HIGH SENSITIVITY 5.4 pg/mL (<=60.3)
[2024-04-01 13:12] VITALS: BP 103/75; PULSE 58
[2024-04-01] MEDS: Albuterol/Ipratropium 3.0-0.5 MG/3 ML Neb Soln NEB ONE (13:56)
== END 2024-04-01 14:30 | disposition home or self-care (01) ==
LOC: JP.ED 11:46
DX: R07.9 Chest pain, unspecified (principal); R10.13 Epigastric pain; I48.91 Unspecified atrial fibrillation; E78.00 Pure hypercholesterolemia, unspecified; Z90.710 Acquired absence of both cervix and uterus; Z79.899 Other long term (current) drug therapy; Z79.01 Long term (current) use of anticoagulants
CPT/HCPCS: 36415; 71046; 80053; 84484; 85025; 93005; 93010; 94640; 99284; 99285; A9270; J7620

== ENCOUNTER 2024-12-06 04:17 | Emergency (ER) | payer MEDICARE, OTHER ==
[2024-12-06] MEDS ORDERED: Nitroglycerin 0.4 MG Tab.SL SL PRN (04:23)
[2024-12-06] MEDS: Alum Hydrox/Mag Hydrox/Simeth 15 ML, Lidocaine 2% 15 ML PO ONE (04:49)
[2024-12-06 04:51] LABS: BASOPHILS ABSOLUTE AUTO 0.06 K/uL (0.00-0.10); BASOPHILS PERCENT AUTO 0.9 % (0.1-1.3); EOSINOPHILS ABSOLUTE AUTO 0.14 K/uL (0.00-0.40); EOSINOPHILS PERCENT AUTO 2.0 % (0.0-5.4); IMMATURE GRAN ABSOLUTE AUTO 0.03 K/uL (0.00-0.23); IMMATURE GRAN PERCENT AUTO 0.4 % (0.0-0.7); LYMPHOCYTES ABSOLUTE AUTO 1.83 K/uL (0.8-3.3); LYMPHOCYTES PERCENT AUTO 26.3 % (11.4-47.7); MONOCYTES ABSOLUTE AUTO 0.74 K/uL (0.20-0.90); MONOCYTES PERCENT AUTO 10.6 % (3.3-12.6); NEUTROPHILS ABSOLUTE AUTO 4.16 K/uL (1.0-7.6); NEUTROPHILS PERCENT AUTO 59.8 % (40.0-78.1); PLATELET COUNT,PLT 310 K/uL (130-375); RED BLOOD CELL COUNT 5.24 M/uL (3.77-5.24); WHITE BLOOD CELL COUNT,WBC 7.0 K/uL (3.2-11.0)
[2024-12-06 05:10] LABS: A/G RATIO 1.1 (1.2-2.2); ALANINE AMINOTRANSFERASE,ALT 15 U/L (12-78); ASPARTATE AMNIOTRANSFERASE,AST 7 U/L (15-37); BILIRUBIN TOTAL 0.4 mg/dL (0.2-1.0); BLOOD UREA NITROGEN,BUN 15 mg/dL (7-18); CARBON DIOXIDE,CO2 29 mmol/L (21-32); CHLORIDE,CL 106 mmol/L (100-108); CREATININE 0.6 mg/dL (0.6-1.0); EST CRCL DRUG DOSING (CG) 60.37 mL/min; ESTIMATED GFR 90 mL/min (>60); GLUCOSE RANDOM 92 mg/dL (74-106); POTASSIUM,K 3.6 mmol/L (3.6-5.2); PROTEIN TOTAL,TP 6.9 g/dL (6.4-8.2); SODIUM,NA 142 mmol/L (140-148); TROPONIN I HIGH SENSITIVITY 9.4 pg/mL (<=60.3)
[2024-12-06 06:47] VITALS: BP 126/72; PULSE 70
== END 2024-12-06 07:30 | disposition home or self-care (01) ==
LOC: JP.ED 04:17
DX: R10.13 Epigastric pain (principal); Z79.899 Other long term (current) drug therapy; Z90.49 Acquired absence of other specified parts of digestive tract; Z90.710 Acquired absence of both cervix and uterus
CPT/HCPCS: 36415; 71045; 80053; 83605; 83690; 84484; 85025; 99285; A9270

== ENCOUNTER 2024-12-30 16:15 | Inpatient (IN) | payer MEDICARE, OTHER ==
[2024-12-30 16:45] LABS: BASOPHILS ABSOLUTE AUTO 0.05 K/uL (0.00-0.10); BASOPHILS PERCENT AUTO 0.4 % (0.1-1.3); EOSINOPHILS PERCENT AUTO 0.0 % (0.0-5.4); IMMATURE GRAN ABSOLUTE AUTO 0.05 K/uL (0.00-0.23); IMMATURE GRAN PERCENT AUTO 0.4 % (0.0-0.7); LYMPHOCYTES ABSOLUTE AUTO 0.71 K/uL (0.8-3.3); LYMPHOCYTES PERCENT AUTO 5.5 % (11.4-47.7); MONOCYTES ABSOLUTE AUTO 0.77 K/uL (0.20-0.90); MONOCYTES PERCENT AUTO 5.9 % (3.3-12.6); NEUTROPHILS ABSOLUTE AUTO 11.44 K/uL (1.0-7.6); NEUTROPHILS PERCENT AUTO 87.8 % (40.0-78.1); PLATELET COUNT,PLT 308 K/uL (130-375); RED BLOOD CELL COUNT 5.14 M/uL (3.77-5.24); WHITE BLOOD CELL COUNT,WBC 13.0 K/uL (3.2-11.0)
[2024-12-30 16:47] LABS: EOSINOPHILS ABSOLUTE AUTO 0.00 K/uL (0.00-0.40)
[2024-12-30 17:13] LABS: A/G RATIO 0.9 (1.2-2.2); ALANINE AMINOTRANSFERASE,ALT 17 U/L (12-78); ASPARTATE AMNIOTRANSFERASE,AST 10 U/L (15-37); BILIRUBIN TOTAL 0.8 mg/dL (0.2-1.0); BLOOD UREA NITROGEN,BUN 9 mg/dL (7-18); CARBON DIOXIDE,CO2 26 mmol/L (21-32); CHLORIDE,CL 101 mmol/L (100-108); CREATININE 0.6 mg/dL (0.6-1.0); EST CRCL DRUG DOSING (CG) 60.05 mL/min; ESTIMATED GFR 90 mL/min (>60); GLUCOSE RANDOM 119 mg/dL (74-106); POTASSIUM,K 3.6 mmol/L (3.6-5.2); PRO B-TYPE NATRIUR PEPT,BNPPRO 640 pg/mL (5-450); PROTEIN TOTAL,TP 7.0 g/dL (6.4-8.2); SODIUM,NA 137 mmol/L (140-148)
[2024-12-30 17:37] LABS: CORONAVIRUS COVID-19 NAA NEGATIVE (NEGATIVE); INFLUENZA A NAA NEGATIVE (NEGATIVE); INFLUENZA B NAA NEGATIVE (NEGATIVE); RESPIRATORY SYNCYTIAL VIR NAA NEGATIVE (NEGATIVE)
[2024-12-30 19:30] LABS: APPEARANCE,URINE CLOUDY (CLEAR); GLUCOSE,URINE NEGATIVE (NEGATIVE); OCCULT BLOOD,URINE NEGATIVE (NEGATIVE)
[2024-12-30 19:35] LABS: SQUAMOUS EPITHELIAL CELLS,UR RARE /HPF; UROTHELIAL CELLS,URINE NOT SEEN /HPF
[2024-12-30] MEDS ORDERED: Nystatin Susp 100,000 Unit/ML 5 ML UD Cup PO PRN (22:01)
[2024-12-30] MEDS ORDERED: Acetaminophen/Caffeine 500-65 MG Tab PO PRN (23:51)
[2024-12-31 05:49] LABS: BASOPHILS PERCENT AUTO 0.2 % (0.1-1.3); EOSINOPHILS PERCENT AUTO 0.2 % (0.0-5.4); IMMATURE GRAN ABSOLUTE AUTO 0.05 K/uL (0.00-0.23); IMMATURE GRAN PERCENT AUTO 0.5 % (0.0-0.7); LYMPHOCYTES ABSOLUTE AUTO 1.00 K/uL (0.8-3.3); LYMPHOCYTES PERCENT AUTO 10.1 % (11.4-47.7); MONOCYTES ABSOLUTE AUTO 0.65 K/uL (0.20-0.90); MONOCYTES PERCENT AUTO 6.6 % (3.3-12.6); NEUTROPHILS ABSOLUTE AUTO 8.12 K/uL (1.0-7.6); NEUTROPHILS PERCENT AUTO 82.4 % (40.0-78.1); PLATELET COUNT,PLT 283 K/uL (130-375); RED BLOOD CELL COUNT 4.37 M/uL (3.77-5.24); WHITE BLOOD CELL COUNT,WBC 9.9 K/uL (3.2-11.0)
[2024-12-31 05:59] LABS: BASOPHILS ABSOLUTE AUTO 0.02 K/uL (0.00-0.10); EOSINOPHILS ABSOLUTE AUTO 0.02 K/uL (0.00-0.40)
[2024-12-31 06:09] LABS: A/G RATIO 0.8 (1.2-2.2); ALANINE AMINOTRANSFERASE,ALT 12 U/L (12-78); ASPARTATE AMNIOTRANSFERASE,AST 9 U/L (15-37); BILIRUBIN TOTAL 0.7 mg/dL (0.2-1.0); BLOOD UREA NITROGEN,BUN 7 mg/dL (7-18); CARBON DIOXIDE,CO2 28 mmol/L (21-32); CHLORIDE,CL 106 mmol/L (100-108); CREATININE 0.6 mg/dL (0.6-1.0); EST CRCL DRUG DOSING (CG) 58.54 mL/min; ESTIMATED GFR 90 mL/min (>60); GLUCOSE RANDOM 110 mg/dL (74-106); POTASSIUM,K 3.7 mmol/L (3.6-5.2); PROTEIN TOTAL,TP 5.7 g/dL (6.4-8.2); SODIUM,NA 139 mmol/L (140-148)
[2024-12-31] MEDS: Lactobacillus Rhamnosus GG (Probiotic) Cap PO SCH (08:08)
[2024-12-31] MEDS: Fluticasone NASAL Spray 16 GM Bottle NAS SCH (08:09)
[2024-12-31] MEDS: SYMBICORT INH SCH (10:52)
[2024-12-31] MEDS: Acetaminophen/Caffeine 500-65 MG Tab PO PRN (17:01)
[2024-12-31] MEDS: DABIGATRAN ETEXILATE MESYLATE PO SCH (17:38)
[2025-01-03 09:00] LABS: BASOPHILS ABSOLUTE AUTO 0.08 K/uL (0.00-0.10); BASOPHILS PERCENT AUTO 1.2 % (0.1-1.3); EOSINOPHILS ABSOLUTE AUTO 0.29 K/uL (0.00-0.40); EOSINOPHILS PERCENT AUTO 4.2 % (0.0-5.4); IMMATURE GRAN ABSOLUTE AUTO 0.25 K/uL (0.00-0.23); IMMATURE GRAN PERCENT AUTO 3.7 % (0.0-0.7); LYMPHOCYTES ABSOLUTE AUTO 1.42 K/uL (0.8-3.3); LYMPHOCYTES PERCENT AUTO 20.8 % (11.4-47.7); MONOCYTES ABSOLUTE AUTO 0.56 K/uL (0.20-0.90); MONOCYTES PERCENT AUTO 8.2 % (3.3-12.6); NEUTROPHILS ABSOLUTE AUTO 4.24 K/uL (1.0-7.6); NEUTROPHILS PERCENT AUTO 61.9 % (40.0-78.1); PLATELET COUNT,PLT 426 K/uL (130-375); RED BLOOD CELL COUNT 5.16 M/uL (3.77-5.24); WHITE BLOOD CELL COUNT,WBC 6.8 K/uL (3.2-11.0)
[2025-01-03 11:29] VITALS: BP 107/67; PULSE 91
== END 2025-01-03 11:15 | disposition home or self-care (01) | DRG 194 ==
LOC: JP.ED 16:15 → JP.ICU 20:36
PROVIDERS: ADMIT Internal Medicine; ATTEND Internal Medicine
DX: J18.9 Pneumonia, unspecified organism (principal); I48.20 Chronic atrial fibrillation, unspecified; Z68.1 Body mass index [BMI] 19.9 or less, adult; J44.0 Chronic obstructive pulmonary disease with (acute) lower respiratory infection; H26.9 Unspecified cataract; E78.00 Pure hypercholesterolemia, unspecified; K59.09 Other constipation; K21.9 Gastro-esophageal reflux disease without esophagitis; G62.9 Polyneuropathy, unspecified; K13.79 Other lesions of oral mucosa; R32 Unspecified urinary incontinence; H54.7 Unspecified visual loss; G89.29 Other chronic pain; R62.7 Adult failure to thrive; G43.909 Migraine, unspecified, not intractable, without status migrainosus; M81.0 Age-related osteoporosis without current pathological fracture; I48.91 Unspecified atrial fibrillation; Z79.51 Long term (current) use of inhaled steroids; Z79.1 Long term (current) use of non-steroidal anti-inflammatories (NSAID); M19.90 Unspecified osteoarthritis, unspecified site; Z90.49 Acquired absence of other specified parts of digestive tract; Z98.49 Cataract extraction status, unspecified eye; Z98.890 Other specified postprocedural states; Z90.710 Acquired absence of both cervix and uterus; Z79.899 Other long term (current) drug therapy
CPT/HCPCS: 36415; 71045 ×2; 80053; 81001; 83605; 83880; 85025; 87070; 87077; 87086; 87184; 87205; 87637; 93005; 93010; 94640; 96361; 96365; 96367; 99285 ×2; A9270 ×2; J0456; J0696; J7030; J7050; 71250; 71250-26; 93971-RT; 94667; 97116-GP; 97161-GP; 97165-GO; 97530-GP